=== PATIENT | female | born 1975 | race Two or more races ===

== ENCOUNTER 2022-06-03 15:21 | Emergency (ER) | payer OTHER, SELFPAY ==
[2022-06-03 16:42] VITALS: BP 0/0; PULSE 0; RESP 0; TEMP -17.7; TEMP 0
== END 2022-06-03 16:44 | disposition left against medical advice (07) ==
LOC: UTC 15:27
PROVIDERS: Emergency Provider Nurse Practitioner
DX: R22.1 Localized swelling, mass and lump, neck (principal); Z53.21 Procedure and treatment not carried out due to patient leaving prior to being seen by health care provider

== ENCOUNTER → 2022-09-11 16:15 | Outpatient (CLI) | payer OTHER, SELFPAY ==
[2022-09-12 09:31] LABS: Amphetamine/Metha Screen,Urine Negative ng/ml (<1000); Barbiturates Screen,Urine Negative ng/ml (<200)
[2022-09-12 09:32] LABS: Benzodiazepines Screen,Urine Negative ng/ml (<200)
[2022-09-12 09:33] LABS: Cannabinoid Screen,Urine Negative ng/ml (<50); Cocaine Screen,Urine Negative ng/ml (<300)
[2022-09-12 09:34] LABS: Methadone Screen,Urine Negative ng/ml (<300); Opiate Screen,Urine Negative ng/ml (<300)
[2022-09-12 09:35] LABS: Phencyclidine Screen,Urine Negative ng/ml (<25)
== END ==
PROVIDERS: PCP Physician Assistant; Visit Provider Physician Assistant
DX: F90.9 Attention-deficit hyperactivity disorder, unspecified type (principal)
CPT/HCPCS: 80305

== ENCOUNTER → 2022-10-15 09:16 | Outpatient (CLI) | payer OTHER, SELFPAY ==
--- NOTE | 2022-10-15 09:36 | XR_ITS ---
FINAL REPORT CLINICAL HISTORY: elbow pain FINDINGS: Left elbow Three views were obtained. There is no acute fracture or dislocation. No joint effusion is identified. The joint spaces appear normal. No soft tissue abnormality is identified. IMPRESSION: No acute process. Reviewed, Interpreted and Dictated by Niko Mccullough III, MD Transcribed by Clary Crowe Authenticated and [facility]
--- NOTE | 2022-10-15 09:36 | XR_ITS ---
FINAL REPORT CLINICAL HISTORY: pain FINDINGS: Left hand Three views were obtained. There is no acute fracture or dislocation. The joint spaces appear normal. No soft tissue abnormality is identified. IMPRESSION: No acute process. Reviewed, Interpreted and Dictated by Niko Mccullough III, MD Transcribed by Clary Crowe Authenticated and [facility]
--- NOTE | 2022-10-15 09:36 | XR_ITS ---
FINAL REPORT CLINICAL HISTORY: Hip pain FINDINGS: Left hip Three views were obtained. There is no acute fracture or dislocation. There are mild degenerative changes of both hips and in the lower lumbar spine. No soft tissue abnormality is identified. IMPRESSION: No acute process. Reviewed, Interpreted and Dictated by Niko Mccullough III, MD Transcribed by Clary Crowe Authenticated and [facility]
== END ==
PROVIDERS: PCP Physician Assistant; Visit Provider Orthopaedic Surgery
DX: M25.552 Pain in left hip (principal); M79.642 Pain in left hand; M25.522 Pain in left elbow
CPT/HCPCS: 73080; 73130; 73502

== ENCOUNTER → 2023-02-03 11:25 | Outpatient (CLI) | payer OTHER, SELFPAY ==
[2023-02-03 14:18] LABS: Basophils % 0.4 % (0.1-2.0); Eosinophils # 0.2 K/mm3 (0.0-0.4); Eosinophils % 2.7 % (0.1-12.0); Hematocrit 42.2 % (37.0-47.0); Hemoglobin 13.8 g/dL (12.2-16.2); Lymphocytes # 2.1 K/mm3 (0.7-4.5); Lymphocytes % 27.2 % (10-50); Mean Corpuscular HGB Conc 32.7 g/dL (31.8-35.4); Mean Corpuscular Hemoglobin 28.2 pg (27.0-31.2); Mean Corpuscular Volume 86.5 fl (81-99); Mean Platelet Volume 8.4 fl (7.4-10.4); Monocytes # 0.5 K/mm3 (0.1-1.0); Monocytes % 6.4 % (1.7-9.3); Neutrophils % 63.4 % (37.0-80.0); Platelet Count 293 K/mm3 (142-424); Red Blood Count 4.88 M/mm3 (4.20-5.40); Red Cell Distribution Width 14.7 % (11.5-17.5); White Blood Count 7.9 K/mm3 (4.8-10.8)
[2023-02-03 14:26] LABS: Chloride 97 mmol/L (98-107); Potassium 4.1 mmoL/L (3.5-5.1); Sodium 138 mmol/L (136-145)
[2023-02-03 14:28] LABS: Alanine Aminotransferase 21 U/L (12-78); Aspartate Amino Transferase 29 U/L (14-36); Blood Urea Nitrogen 13 mg/dl (7-17); Estimated Glomerular Filt Rate 107 ml/min (>60); GFR (African American) 130 ML/MIN (>60)
[2023-02-03 14:29] LABS: Albumin Level 4.3 g/dl (3.5-5.0); Albumin/Globulin Ratio 1.5 (1.1-1.8); Alkaline Phosphatase 61 U/L (38-126); Anion Gap 17.1 mEq/L (5-15); Bilirubin,Total 0.3 mg/dl (0.2-1.3); Calcium 9.1 mg/dl (8.4-10.2); Carbon Dioxide 28 mmol/L (22.0-30.0); Cholesterol 165 mg/dl (140-200); Globulin 2.8 g/dL (1.3-3.2); Glucose 100 mg/dl (74-100); Total Protein,Serum 7.1 g/dl (6.3-8.2); Triglycerides 136 mg/dl (30-150); VLDL Cholesterol 27 mg/dL (0-40)
[2023-02-03 14:30] LABS: Chol/HDL Ratio 4.2 (1-3.5); HDL Cholesterol 39 mg/dl (40-60)
[2023-02-03 14:43] LABS: Direct LDL Cholesterol 95.45 mg/dL (100-129)
[2023-02-03 14:46] LABS: 25-OH Vitamin D, Total 45.1 ng/mL (30-100)
[2023-02-03 14:48] LABS: Triiodothryronine (T3) Uptake 29 % (23.5-40.5)
[2023-02-03 14:49] LABS: Free Thyroxine Index 2.6 ug/dL (5.93-13.13); T4 (Thyroxine) 8.9 ug/dl (5.53-11.0)
== END ==
PROVIDERS: PCP Physician Assistant; Visit Provider Physician Assistant
DX: R53.83 Other fatigue (principal); F90.9 Attention-deficit hyperactivity disorder, unspecified type; N39.0 Urinary tract infection, site not specified; B96.29 Other Escherichia coli [E. coli] as the cause of diseases classified elsewhere
CPT/HCPCS: 80053; 80061; 82306; 84436; 84443; 84479; 85025; 87086; 87088; 87186

== ENCOUNTER → 2023-03-20 12:22 | Outpatient (CLI) | payer OTHER, SELFPAY ==
[2023-03-20 12:50] LABS: Alanine Aminotransferase 24 U/L (12-78); Albumin/Globulin Ratio 1.3 (1.1-1.8); Alkaline Phosphatase 81 U/L (38-126); Anion Gap 17.2 mEq/L (5-15); Aspartate Amino Transferase 27 U/L (14-36); Bilirubin,Total 0.3 mg/dl (0.2-1.3); Blood Urea Nitrogen 9 mg/dl (7-17); Carbon Dioxide 25 mmol/L (22.0-30.0); Chloride 104 mmol/L (98-107); Estimated Glomerular Filt Rate 132 ml/min (>60); GFR (African American) 160 ML/MIN (>60); Glucose 117 mg/dl (74-100); Potassium 4.2 mmoL/L (3.5-5.1); Sodium 142 mmol/L (136-145)
[2023-03-20 12:58] LABS: Basophils % 0.2 % (0.1-2.0); Eosinophils # 0.4 K/mm3 (0.0-0.4); Eosinophils % 2.6 % (0.1-12.0); Hematocrit 41.4 % (37.0-47.0); Hemoglobin 13.2 g/dL (12.2-16.2); Lymphocytes # 1.4 K/mm3 (0.7-4.5); Lymphocytes % 8.9 % (10-50); Mean Corpuscular HGB Conc 31.9 g/dL (31.8-35.4); Mean Corpuscular Hemoglobin 27.9 pg (27.0-31.2); Mean Corpuscular Volume 87.7 fl (81-99); Mean Platelet Volume 7.8 fl (7.4-10.4); Monocytes # 0.8 K/mm3 (0.1-1.0); Monocytes % 5.3 % (1.7-9.3); Neutrophils # 12.6 K/mm3 (1.8-7.8); Platelet Count 319 K/mm3 (142-424); Red Blood Count 4.72 M/mm3 (4.20-5.40); Red Cell Distribution Width 14.3 % (11.5-17.5); White Blood Count 15.2 K/mm3 (4.8-10.8)
[2023-03-20 13:05] LABS: MANUAL DIFFERENTIAL MANUAL DIFFERENTIAL (MANUAL DIFF)
[2023-03-20 15:37] LABS: Monoscreen (Rapid) Negative (Negative)
[2023-03-20 15:41] LABS: Eosinophils % 3 % (0-3); Lymphocytes % 17 % (10-50); Monocytes % 2 % (2-9); Neutrophils % 78 % (42-76); Platelet Estimate Normal; RBC Morphology Normal; Total Cells Counted 100
[2023-03-21 16:13] LABS: EBV Ab VCA, IgG >600.0 U/mL (0.0-17.9); EBV Ab VCA, IgM <36.0 U/mL (0.0-35.9); EBV Nuclear Antigen Ab, IgG >600.0 U/mL (0.0-17.9)
== END ==
PROVIDERS: PCP Physician Assistant; Visit Provider Physician Assistant
DX: R59.1 Generalized enlarged lymph nodes (principal)
CPT/HCPCS: 80053; 85007; 85025; 86318; 86664; 86665

== ENCOUNTER 2023-05-07 11:27 | Emergency (ER) | payer OTHER, SELFPAY ==
[2023-05-07 11:40] VITALS: BP 109/70; PULSE 65; RESP 15; TEMP 36.6; O2SAT 98; BMI 27.9
--- NOTE | 2023-05-07 11:49 | EXP.UTC ---
Discharge Plan Disposition Patient Disposition: Home, Self-Care Condition: Good Prescriptions Prescriptions: New sulfamethoxazole-trimethoprim [Bactrim DS] 800-160 mg Tablet 1 tab PO BID Qty: 14 0RF phenazopyridine [Pyridium] 200 mg tablet 200 mg PO Q8H 2 Days Qty: 6 0RF Referrals Follow up/Referrals: Princess Rubi PA [Primary Care Provider] - See instructions Activity Restrictions/Add. Instructions Additional Instructions/Restrictions: Drink plenty of fluids. Take tylenol or ibuprofen for pain or fever. Take the medications as directed. Follow up with your regular doctor. GO TO THE ER FOR ANY WORSENING SYMPTOMS The pyridium will make your urine turn orange, this is an expected side effect. It will stain your clothes if it comes into contact with them. We will culture the urine. That will tell what bacteria is causing your infection and which antibiotics will treat it best. Sometimes the first antibiotic we prescribe turns out to not work against different bacteria. So, make sure you follow up within 3 days if you are not getting better. Clinical Impressions Clinical Impression: UTI (urinary tract infection) Instructions Patient Instructions: Urine Culture, Phenazopyridine Discharge ED Provider: Jh Drake [facility] General Stated complaint: kidney/bladder pain, bilateral side pain, shakey Mode of Arrival: Ambulatory Source of Information: Patient Limitations: No Limitations Time Seen by Provider: 05/07/23 11:49 Description of Symptoms (Recalled from Triage Doc. by RN): Pt. states she thinks she has kidney stones. She stats her stomach is tender and is having sharp abdominal pain. She states she feels nauseous, has chills and is shaky. HEENT Symptoms (Recalled from RN notes): No Resp Symptoms (Recalled from RN notes): No Skin Symptoms (Recalled from RN notes): No MS Symptoms (Recalled from RN notes): No Functional Status (Recalled from RN notes): no History of Present Illness Provider Complaint: She states that for the past 2 days she has had low back pain, dysuria, and urinary frequency. Related Data Previous Rx's Medication Instructions Recorded phenazopyridine 200 mg tablet 200 mg PO Q8H 2 days #6 tabs 05/07/23 (Pyridium) sulfamethoxazole 800 1 tab PO BID #14 tabs 05/07/23 mg-trimethoprim 160 mg tablet (Bactrim DS) Allergies Allergy/AdvReac Type Severity Reaction Status Date / Time codeine [CODEINE] Allergy Unknown Verified 05/07/23 11:37 Worker's Comp Is this a Worker's Comp case?: No [facility] Disclaimer: The information contained in this section may have been updated after the patient was seen, as this information can be updated by other users. Medical History Anxiety Depression UTI (urinary tract infection) Surgical History H/O laparoscopy H/O wisdom tooth extraction Previous section Family History Other No significant family history Social History Smoking Status: Never smoker second hand exposure: No alcohol intake: never current occupational status: employed Travel in the last 8 weeks: None household members: spouse and children housing: house current occupational exposures/hazards: No ROS Obtained: Yes All systems reviewed & no additional complaints except as documented Constitutional Constitutional: Reports system reviewed and no additional complaints, except as documented, Denies chills and Denies fever(s) Eyes Eyes: Denies eye discharge ENT Ears, Nose, Mouth, and Throat: Denies dysphagia, Denies sore throat and Denies throat swelling Cardiovascular Cardiovascular: Denies chest pain and Denies dyspnea Respiratory Respiratory: Denies chest congestion, Denies cough and Denies dyspnea Gastroint
[2023-05-07 12:23] LABS: Microscopic, Urine URINE MICROSCOPIC (MICROSCOPIC)
[2023-05-07 12:31] LABS: Appearance,Urine SL CLOUDY (Clear); Blood, Urine Negative (Negative); Color,Urine STRAW (Yellow); Glucose,Urine (UA) TRACE (Negative); Ketones,Urine TRACE (Negative); Leukocyte Esterase,Urine 2+ (Negative); Nitrate,Urine POSITIVE (Negative); Protein,Urine 1+ (Negative)
[2023-05-07 12:32] VITALS: BP 109/70; PULSE 65; RESP 15; TEMP 36.6
[2023-05-07 13:01] LABS: Bacteria,Urine 3+ /lpf; Bilirubin,Urine 1+ (Negative); RBC,Urine Occasional #/hpf (0-3)
== END 2023-05-07 12:45 | disposition home or self-care (01) ==
PROVIDERS: Emergency Provider Nurse Practitioner Family; PCP Physician Assistant
DX: N39.0 Urinary tract infection, site not specified (principal); M54.59 Other low back pain; F41.9 Anxiety disorder, unspecified; F32.A Depression, unspecified
CPT/HCPCS: 81001; 87086; 99212; 99214; G0463

== ENCOUNTER → 2023-05-08 13:55 | Outpatient (CLI) | payer OTHER, SELFPAY | PROVIDERS: PCP Nurse Practitioner Family; Visit Provider Nurse Practitioner Family | DX: N39.0 Urinary tract infection, site not specified (principal) | CPT/HCPCS: 87086 ==

== ENCOUNTER 2023-12-16 09:08 | Outpatient (CLI) | payer OTHER, SELFPAY ==
--- NOTE | 2023-12-16 09:32 | XR_ITS ---
FINAL REPORT CLINICAL HISTORY: Lt Knee Pain COMPARISON: None FINDINGS: Three views of the left knee reveal no evidence of fracture or dislocation. The bony alignment is normal. The joint spaces are preserved. There is no evidence of joint effusion. No localized soft tissue abnormality is seen. IMPRESSION: No acute abnormality identified. Reviewed, Interpreted and Dictated by Niko Mccullough III, MD Transcribed by Evonne Bland Authenticated and [facility]
== END 2023-12-16 23:59 ==
LOC: RAD 09:09
PROVIDERS: PCP Physician Assistant; Visit Provider Orthopaedic Surgery
DX: M25.562 Pain in left knee (principal)
CPT/HCPCS: 73562

== ENCOUNTER 2024-03-10 10:19 | Outpatient (CLI) | payer OTHER, SELFPAY | END 2024-03-10 23:59 | disposition home or self-care (01) | LOC: LAB.DROPOF 03-11 10:19 | PROVIDERS: PCP Nurse Practitioner Family; Visit Provider Nurse Practitioner Family | DX: N39.0 Urinary tract infection, site not specified (principal); B96.1 Klebsiella pneumoniae [K. pneumoniae] as the cause of diseases classified elsewhere | CPT/HCPCS: 87086; 87088; 87186 ==

== ENCOUNTER 2024-03-30 08:47 | Outpatient (CLI) | payer OTHER, SELFPAY ==
--- NOTE | 2024-03-30 08:47 | CT_ITS ---
FINAL REPORT TECHNIQUE: Noncontrast CT exam of the abdomen and pelvis. This study was performed with techniques to keep radiation doses as low as reasonably achievable (ALARA). Individualized dose reduction techniques using automated exposure control or adjustment of mA and/or kV according to the patient''s size were employed. CLINICAL HISTORY: hx renal stones, UTI, abd pain COMPARISON: None FINDINGS: Abdomen: Lung bases are clear. Liver, spleen, pancreas and adrenal glands have a normal CT appearance in their limited unenhanced state. The gallbladder is unremarkable in appearance. The kidneys show numerous bilateral calyceal renal stones, measuring up to 4 mm in greatest diameter, although most are approximately 2 to 3 mm in diameter. No evidence of hydronephrosis is present. No obvious renal mass is present. No ureteral stones are present. Pelvis: No distal ureteral stones are seen. Bladder is unremarkable. No fluid collection or adenopathy is seen. The appendix is normal in appearance. The uterus and ovaries are also unremarkable. IMPRESSION: Numerous bilateral calyceal renal stones without evidence of obstruction. No acute intra-abdominal or intrapelvic process is identified. Reviewed, Interpreted and Dictated by La Nena Murillo MD Transcribed by Yeimy San Authenticated and [facility]
--- NOTE | 2024-03-30 09:42 | HMH.ITSTN ---
patient's study was ordered with and without contrast. Pt refused contrast, so order was modified per doctor to without contrast
== END 2024-03-30 23:59 | disposition home or self-care (01) ==
LOC: RAD 08:47
PROVIDERS: PCP Physician Assistant; Visit Provider Nurse Practitioner Family
DX: N20.0 Calculus of kidney (principal); N30.01 Acute cystitis with hematuria; R10.9 Unspecified abdominal pain
CPT/HCPCS: 74176

== ENCOUNTER 2024-06-24 11:12 | Outpatient (CLI) | payer OTHER, SELFPAY ==
--- NOTE | 2024-06-24 11:15 | XR_ITS ---
FINAL REPORT CLINICAL HISTORY: pain in the leg from the knee to ankle COMPARISON: None FINDINGS: LEFT TIBIA FIBULA: There is no acute fracture or dislocation. The joint spaces are intact. There is no soft tissue abnormality. IMPRESSION: No acute bony abnormality identified. Reviewed, Interpreted and Dictated by Jeferson Paez MD Transcribed by Yeimy San Authenticated and [facility]
== END 2024-06-24 23:59 | disposition home or self-care (01) ==
LOC: RAD 11:12
PROVIDERS: PCP Nurse Practitioner Family; Visit Provider Orthopaedic Surgery
DX: M89.8X6 Other specified disorders of bone, lower leg (principal)
CPT/HCPCS: 73590

== ENCOUNTER 2024-07-27 18:31 | Outpatient (CLI) | payer OTHER, SELFPAY ==
[2024-07-27 19:31] LABS: Albumin Level 4.4 g/dl (3.5-5.0); Chloride 103 mmol/L (98-107); Potassium 4.3 mmoL/L (3.5-5.1); Sodium 137 mmol/L (136-145)
[2024-07-27 19:33] LABS: Blood Urea Nitrogen 12 mg/dl (7-17); Estimated Glomerular Filt Rate 107 ml/min (>60); GFR (African American) 129 ML/MIN (>60)
[2024-07-27 19:34] LABS: Alanine Aminotransferase 20 U/L (12-78); Albumin/Globulin Ratio 1.4 (1.1-1.8); Alkaline Phosphatase 67 U/L (38-126); Anion Gap 14.3 mEq/L (5-15); Aspartate Amino Transferase 23 U/L (14-36); Bilirubin,Total 0.6 mg/dl (0.2-1.3); Calcium 9.9 mg/dl (8.4-10.2); Carbon Dioxide 24 mmol/L (22.0-30.0); Cholesterol 195 mg/dl (140-200); Globulin 3.1 g/dL (1.3-3.2); Glucose 91 mg/dl (74-100); Total Protein,Serum 7.5 g/dl (6.3-8.2); Triglycerides 125 mg/dl (30-150); VLDL Cholesterol 25 mg/dL (0-40)
[2024-07-27 19:35] LABS: Chol/HDL Ratio 4.5 (1-3.5); HDL Cholesterol 43 mg/dl (40-60)
[2024-07-27 19:37] LABS: Basophils # 0.1 K/mm3 (0-0.2); Basophils % 0.8 % (0.1-2.0); Eosinophils # 0.2 K/mm3 (0.0-0.4); Eosinophils % 2.6 % (0.1-12.0); Hematocrit 44.1 % (37.0-47.0); Hemoglobin 14.3 g/dL (12.2-16.2); Lymphocytes # 1.8 K/mm3 (0.7-4.5); Lymphocytes % 22.3 % (10-50); Mean Corpuscular HGB Conc 32.4 g/dL (31.8-35.4); Mean Corpuscular Hemoglobin 28.6 pg (27.0-31.2); Mean Platelet Volume 8.1 fl (7.4-10.4); Monocytes # 0.4 K/mm3 (0.1-1.0); Monocytes % 5.5 % (1.7-9.3); Neutrophils # 5.5 K/mm3 (1.8-7.8); Neutrophils % 68.8 % (37.0-80.0); Platelet Count 321 K/mm3 (142-424); Red Blood Count 5.01 M/mm3 (4.20-5.40); Red Cell Distribution Width 14.1 % (11.5-17.5)
[2024-07-27 19:45] LABS: Direct LDL Cholesterol 115.17 mg/dL (100-129)
[2024-07-27 19:50] LABS: Free T4 (Free Thyroxine) 1.26 ng/dl (0.78-2.19)
[2024-07-27 20:06] LABS: Thyroid Stimulating Hormone 1.44 uIU/mL (0.465-4.68)
== END 2024-07-27 23:59 | disposition home or self-care (01) ==
LOC: LAB.DROPOF 18:33
PROVIDERS: PCP Nurse Practitioner Family; Visit Provider Nurse Practitioner Family
DX: F90.9 Attention-deficit hyperactivity disorder, unspecified type (principal); R10.9 Unspecified abdominal pain; M92.522 Juvenile osteochondrosis of tibia tubercle, left leg
CPT/HCPCS: 80050; 80053; 80061; 84439; 84443; 84481; 85025

== ENCOUNTER 2024-11-08 16:50 | Outpatient (CLI) | payer OTHER, SELFPAY ==
[2024-11-08 17:39] LABS: Amphetamine/Metha Screen,Urine Negative ng/ml (<1000)
[2024-11-08 17:40] LABS: Barbiturates Screen,Urine Negative ng/ml (<200)
[2024-11-08 17:41] LABS: Benzodiazepines Screen,Urine Negative ng/ml (<200); Cannabinoid Screen,Urine Negative ng/ml (<50)
[2024-11-08 17:42] LABS: Cocaine Screen,Urine Negative ng/ml (<300)
[2024-11-08 17:43] LABS: Methadone Screen,Urine Negative ng/ml (<300); Opiate Screen,Urine Negative ng/ml (<300)
[2024-11-08 17:44] LABS: Phencyclidine Screen,Urine Negative ng/ml (<25)
== END 2024-11-08 23:59 | disposition home or self-care (01) ==
LOC: LAB 16:51
PROVIDERS: PCP Nurse Practitioner Family; Visit Provider Nurse Practitioner Acute Care
DX: F90.9 Attention-deficit hyperactivity disorder, unspecified type (principal)
CPT/HCPCS: 80307

== ENCOUNTER 2025-02-09 09:53 | Outpatient (CLI) | payer OTHER, SELFPAY ==
[2025-02-09 19:04] LABS: Basophils # 0.1 K/mm3 (0-0.2); Basophils % 0.9 % (0.1-2.0); Eosinophils # 0.3 Kmm3 (0.0-0.4); Eosinophils % 4.2 % (0.1-12.0); Hematocrit 44.4 % (37.0-47.0); Hemoglobin 13.8 g/dL (12.2-16.2); Immature Granulocytes # 0.01 10^3uL; Immature Granulocytes % 0.2 %; Lymphocytes # 1.9 K/mm3 (0.7-4.5); Mean Corpuscular HGB Conc 31.1 g/dL (31.8-35.4); Mean Corpuscular Hemoglobin 27.4 pg (27.0-31.2); Mean Corpuscular Volume 88.1 fl (81-99); Monocytes # 0.5 K/mm3 (0.1-1.0); Monocytes % 7.7 % (1.7-9.3); Neutrophils # 3.8 K/mm3 (1.8-7.8); Nucleated Red Blood Cells # 0 10^3/uL; Nucleated Red Blood Cells % 0 %; Platelet Count 354 K/mm3 (142-424); Red Blood Count 5.04 M/mm3 (4.20-5.40); Red Cell Distribution Width 14.6 % (11.5-17.5); Red Cell Distribution Width-SD 46.8 fL; White Blood Count 6.5 K/mm3 (4.8-10.8)
[2025-02-09 19:31] LABS: Alanine Aminotransferase 21 U/L (12-78); Albumin Level 4.4 g/dl (3.5-5.0); Albumin/Globulin Ratio 1.6 (1.1-1.8); Alkaline Phosphatase 63 U/L (38-126); Anion Gap 8.3 mEq/L (5-15); Aspartate Amino Transferase 26 U/L (14-36); Bilirubin,Total 0.4 mg/dl (0.2-1.3); Blood Urea Nitrogen 17 mg/dl (7-17); Calcium 9.9 mg/dl (8.4-10.2); Carbon Dioxide 29 mmol/L (22.0-30.0); Chloride 106 mmol/L (98-107); Estimated Glomerular Filt Rate 106 ml/min (>60); GFR (African American) 129 ML/MIN (>60); Globulin 2.7 g/dL (1.3-3.2); Glucose 86 mg/dl (74-100); Potassium 4.3 mmoL/L (3.5-5.1); Sodium 139 mmol/L (136-145); Total Protein,Serum 7.1 g/dl (6.3-8.2)
--- OUTSIDE RECORDS SUMMARY | 2025-02-10 08:20 | XMS_ITS | Continuity of Care Document ---
Author Name [facility] Organization [facility] Care Team Providers Care Stock Worker Name Role Phone [facility] Unavailable Unavailable Encounters [...] ADM Date DC Date Status Disposition Source [facility] Outpatient Encounter [id number] 02/07 [facility]
[2025-02-11 08:13] LABS: Estradiol 45.3 pg/mL (.); FSH 11.2 mIU/mL (.); LH 7.3 mIU/mL (.); Progesterone 0.1 ng/mL (.)
[2025-02-12 14:11] LABS: Estrogen 187 pg/mL (.)
== END 2025-02-09 23:59 | disposition home or self-care (01) ==
LOC: LAB.DROPOF 02-10 08:18
PROVIDERS: PCP Nurse Practitioner Family; Visit Provider Nurse Practitioner Family
DX: N95.9 Unspecified menopausal and perimenopausal disorder (principal)
CPT/HCPCS: 80053; 82670; 82672; 83001; 83002; 84144; 85025

== ENCOUNTER 2025-03-28 10:27 | Outpatient (CLI) | payer OTHER, SELFPAY ==
--- OUTSIDE RECORDS SUMMARY | 2025-02-07 12:14 | XMS_ITS | Continuity of Care Document ---
Author Name [facility] Organization [facility] Care Team Providers Care Central Supply Tech Name Role Phone [facility] Unavailable Unavailable Encounters [...] ADM Date DC Date Status Disposition Source [facility] Outpatient Encounter [id number] 02/07 [facility]
[2025-03-28 10:55] LABS: Basophils # 0.1 K/mm3 (0-0.2); Basophils % 0.7 % (0.1-2.0); Eosinophils # 0.1 Kmm3 (0.0-0.4); Eosinophils % 0.8 % (0.1-12.0); Hematocrit 39.9 % (37.0-47.0); Hemoglobin 12.9 g/dL (12.2-16.2); Immature Granulocytes # 0.05 10^3uL; Immature Granulocytes % 0.4 %; Lymphocytes # 5.9 K/mm3 (0.7-4.5); Lymphocytes % 50.4 % (10-50); Mean Corpuscular HGB Conc 32.3 g/dL (31.8-35.4); Mean Corpuscular Hemoglobin 26.7 pg (27.0-31.2); Mean Corpuscular Volume 82.6 fl (81-99); Mean Platelet Volume 10.1 fl (7.4-10.4); Monocytes # 0.3 K/mm3 (0.1-1.0); Monocytes % 2.4 % (1.7-9.3); Neutrophils # 5.3 K/mm3 (1.8-7.8); Neutrophils % 45.3 % (37.0-80.0); Nucleated Red Blood Cells # 0 10^3/uL; Nucleated Red Blood Cells % 0 %; Platelet Count 161 K/mm3 (142-424); Red Blood Count 4.83 M/mm3 (4.20-5.40); Red Cell Distribution Width 15.1 % (11.5-17.5); Red Cell Distribution Width-SD 45.4 fL; White Blood Count 11.7 K/mm3 (4.8-10.8)
[2025-03-28 11:00] LABS: Monoscreen (Rapid) Negative (Negative)
[2025-03-28 11:01] LABS: MANUAL DIFFERENTIAL MANUAL DIFFERENTIAL (MANUAL DIFF)
--- OUTSIDE RECORDS SUMMARY | 2025-03-28 11:04 | XMS_ITS | Encounter Summary ---
Author Organization [email or web address] Address [address] [place] [id number] Care Team Providers Care Residential Gas Heat Technician Name Role Phone Unavailable Primary Care Provider Unavailabl e Encounter Details Date Type Department Care Team (Late st Contact Info) Description 11/10/2020 Transcribed Document [facility] Family Medicine [facility] [place] [address] ProviderFernanda MD [facility] [place] [address] Social History Tobacco Use Types Packs/Day Years Used Date Smoking Tobacco: Never Assessed Comments Unknown Sex and Gender Information Value Date Recorded Sex Assigned at Not on file Legal Sex Female 6:10 PM CDT Gender Identity Not on file Sexual Orientation Not on file documented as of this encounter Miscellaneous Notes * Cerner Conversion Note - Fernanda ProviderMD - 11/10/2020 12:29 PM EL TEACHER ED Triage Entered On: 11/10/2020 12:44 EST Performed On: 11/10/2020 12:42 EST by Lexi Snow Flex Team chopping machine operator Triage Across the Room Chief Complaint : pt having urinary problems, for last few days, urine discolored, lower abd pain with cramping, Triage Date/Time : 11/10/2020 12:42 EST Lexi Snow Flex Team Rn - 11/10/2020 12:42 EST DCP GENERIC CODE Tracking Acuity : 3 - Urgent Tracking Group : [facility] [place] Lexi Snow Flex Team Rn - 11/10/2020 12:42 EST Mode of Arrival : Ambulatory Transported to ED by : Private vehicle To Room Via : Ambulate Accompanied By : Unaccompanied ED Vital Signs : Document Height & Weight : Document ED Allergies : Document ED Reason for Visit : Document Tetanus Immunization : Less than 5 years Grades 7 And 8 Teacher Needed : No Lexi Snow Flex Team Rn - 11/10/2020 12:42 EST Infectious Disease History Has the patient ever been tested for COVID-19? : No, Patient stated Does patient have symptoms of COVID-19? : No COVID19 Screening : No Experiencing Infectious Disease Symptoms : No symptoms Physical contact outside [place] in the last 30 days : No Infectious Disease History : Chicken pox/Shingles Tuberculosis Symptoms : None Lexi Snow Flex Team Rn - 11/10/2020 12:42 EST Vital Signs ED Temperature Source : Oral Temperature Mode : Fahrenheit Temperature, Fahrenheit : 98.0 Deg F ED Pain : Yes Clinical Temperature, C : 36.7 Deg C Oxygen Therapy Mode : Room air Peripheral Pulse Rate : 88 bpm Respiratory Rate : 16 Breaths/Min Systolic Blood Pressure : 146 mmHg (HI) Diastolic Blood Pressure : 87 mmHg Oxygen Saturation : 100 % Lexi Snow Flex Team Rn - 11/10/2020 12:42 EST Allergy (As Of: 11/10/2020 12:44:45 EST) Allergies (Active) codeine Estimated Onset Date: Unspecified ; Created By: Contributor_system HIST_GREY; Reaction Status: Active ; Category: Drug ; Substance: codeine ; Type: Allergy ; Updated By: Contributor_system HIST_GREY; Reviewed Date: 11/10/2020 12:43 EST Diagnosis Control ED (As Of: 11/10/2020 12:44:45 EST) Problems(Active) 28 weeks gestation of (SNOMED CT :402239468 ) Name of Problem: 28 weeks gestation of ; Recorder: PAT SUTTON MD; Confirmation: Confirmed ; Classification: Medical ; Code: [id number] ; Contributor System: Canvace ; Last Updated: 05/22/2018 17:04 EDT ; Life Cycle Date: 05/22/2018 ; Life Cycle Status: Active ; Responsible Provider: PAT SUTTON MD; Vocabulary: SNOMED CT Cough (SNOMED CT :83849510 ) Name of Problem: Cough ; Recorder: PAT SUTTON MD; Confirmation: Confirmed ; Classification: Medical ; Code: [id number] ; Contributor System: Canvace ; Last Updated: 05/22/2018 17:05 EDT ; Life Cycle Date: 05/22/2018 ; Life Cycle Status: Active ; Responsible Provider: PAT SUTTON MD; Vocabulary: SNOMED CT Vaginal discharge in in third trimester (SNOMED CT :642995159 ) Name of Problem: Vaginal discharge in in third trimester ; Recorder: PAT SUTTON MD; Confirmation: Confirmed ; Classification: Medical ; Code: [id number] ; Contributor System: Canvace ; Last Updated: 05/22/2018 17:05 EDT ; Life Cycle Date: 05/22/2018 ; Life Cycle Status: Active ; Responsible Provider: PAT SUTTON MD; Vocabulary: SNOMED CT Diagnoses(Active) Abdominal pain Date: 11/10/2020 ; Diagnosis Type: Reason For Visit ; Confirmation: Complaint of ; Clinical Dx: Abdominal pain ; Classification: Medical ; Clinical Service: Non-Specified ; Code: PNED ; Probability: 0 ; Diagnosis Code: [id number] ED Height and Weight Height Source : Stated Height Entry Format : [place] Height, Feet : 5 ft(Converted to: 152 cm, 60 Inch) Height, Inches : 5 Inch(Converted to: 0 ft 5 Inch, 12.70 cm) Clinical Height : 165.1 cm Weight Source, ED : Critical estimated dosing weight Weight Entry Format : [place] Weight, Pounds : 195 lb Clinical Dosing Weight : 88.64 kg Body Surface Area (BSA) : 1.96 m2 Body Mass Index : 32.5 kg/m2 (HI) [place] Body Weight (IBW) : 56.59 kg Lexi Snow Flex Team Rn - 11/10/2020 12:42 EST Pain Assessment Pain Assessment : Initial assessment Pain Scale Used : 0-10 Scale Location : Abdominal Lexi Snow Flex Team Rn - 11/10/2020 12:42 EST Pain Scale Intensity : 7 Lexi Snow Flex Team Rn - 11/10/2020 12:42 EST Image 4 - Images currently included in the form version of this document have not been included in the text rendition version of the form. documented in this encounter Plan of Treatment Not on file documented as of this encounter Visit Diagnoses Not on filedocumented in this encounter
--- OUTSIDE RECORDS SUMMARY | 2025-03-28 11:04 | XMS_ITS | Referral Summary ---
Author Organization [employer] Address [address] [place] [address] Care Team Providers Care Inclusion Specialist Name Role Phone Unavailable Primary Care Provider Unavailabl e Social History Tobacco Use Types Packs/Day Years Used Date Smoking Tobacco: Never Assessed Comments Unknown Sex and Gender Information Value Date Recorded Sex Assigned at Not on file Legal Sex Female 6:10 PM CDT Gender Identity Not on file Sexual Orientation Not on file Plan of Treatment Not on file
--- OUTSIDE RECORDS SUMMARY | 2025-03-28 11:04 | XMS_ITS | Encounter Summary ---
Author Organization [employer] Address [address] [place] [id number] Care Team Providers Care Client Support Consultant Name Role Phone Unavailable Primary Care Provider Unavailabl e Encounter Details Date Type Department Care Team (Late st Contact Info) Description 11/10/2020 Transcribed Document [facility] [place] [facility] [address] [place] [address] ProviderFernanda MD [address] [place] [address] Social History Tobacco Use Types Packs/Day Years Used Date Smoking Tobacco: Never Assessed Comments Unknown Sex and Gender Information Value Date Recorded Sex Assigned at Not on file Legal Sex Female 6:10 PM CDT Gender Identity Not on file Sexual Orientation Not on file documented as of this encounter Miscellaneous Notes * Cerner Conversion Note - Fernanda Macedo MD - 11/10/2020 2:58 PM [employer] [place] [id number] ALEXANDREA PAN SENTHIL :1975 Visit Time:11/10/2020 Your Visit Summary Your Care Team Primary Provider: SUSAN TURCIOS APRN-[facility] Secondary Provider: Your Diagnosis Abdominal pain Bilateral kidney stones Dysuria Hematuria Urinary tract infection Medical Information You may obtain a copy of your Emergency Department visit from Medical Records by calling the hospital phone number listed above and asking to be directed to the Medical Records Department. If you had special tests, such as EKG???s or X-rays, the interpretation of your tests given to you by the Emergency Department Physician is a preliminary report. Some fractures and illnesses fail to show up on preliminary tests. These will be reviewed again and we will call you if there are any new suggestions. If your symptoms continue notify your physician. After you leave, you should follow the instructions provided. What to do next Follow-Up Appointments Follow Up with DEVAN RUSS When Within 2 to 3 days Comments Rest, fluids, and follow up with urology. Return to ER for fever, chills, inability to urinate, or other new/worse symptoms. Where: [address] [place] [address] [place] [address]- [facility] (1) Allergies codeine Immunizations This Visit No Immunizations Found Medications What How Much When Instructions Next Dose cefUROXIME (Ceftin 500 mg oral tablet) 1 Tablet(s) Oral Two Times A Day Duration: 7 Day(s) Pickup at [place] [address] phenazopyridine (Pyridium 200 mg oral tablet) 1 Tablet(s) Oral Two Times A Day Duration: 2 Day(s) Pickup at [place] [address] acetaminophen-hydrocodone (acetaminophen-HYDROcodone 325 mg-5 mg oral tablet) 2 Tablet(s) Oral Every 4 Hours as needed for Pain (Severe 7-10) acetaminophen-hydrocodone (acetaminophen-HYDROcodone 325 mg-5 mg oral tablet) 1 Tablet(s) Oral Every 4 Hours as needed for Pain (Moderate 4-6) ibuprofen (ibuprofen 600 mg oral tablet) 1 Tablet(s) Oral Every 6 Hours metFORMIN (metFORMIN 500 mg oral tablet) 1 Tablet(s) Oral Two Times A Day multivitamin, ( Rx Low Iron) Oral Every Day Pharmacy Information [facility] [address]: [phone] [place] [id number] [phone] The home medications listed are only as accurate as the information you provided. Please continue taking all of your medications prescribed by your Primary Care Provider unless specifically told to change or discontinue the medication. Please direct any questions regarding your home medications to your Primary Care Provider. Take your medications faithfully. Do NOT skip medication. Do NOT stop taking medications without the direction of a physician. Carry a list of your medications with you at all times, and take this medication list with you to your first follow up visit. Report any side effects. Avoid herbal remedies unless discussed with your physician. As part of your treatment plan, your physician may have prescribed a limited course of a controlled substance. This medication may be given to help people with moderate or severe pain or for other medical conditions, but there are risks involved with treatment. Common side effects may include nausea, constipation, drowsiness, sweating, itching, dry mouth, and rash. More serious side effects may include cognitive and motor impairment, like problems with thinking, concentrating, alertness, and movement (e.g. slowed reflexes), and driving and operating heavy machinery can be dangerous. It is important for you to talk to your physician if you have these side effects or questions. These controlled substances can produce physical dependence and be habit-forming if taken for an extended period of time, which means that the body has gotten used to them and may experience withdrawal symptoms if they are abruptly stopped. Withdrawal symptoms can include runny nose, sweating, goose bumps, diarrhea, abdominal cramping, rapid heartbeat, difficulty sleeping, and nervousness. Please dispose of unused and medications per pharmacy guidance. Test Results Laboratory or Other Results This Visit (last charted value for your 11/10/2020 visit) Urinalysis 11/10/2020 12:45 PM Ur RBC: TNTC /HPF Urine Nitrite: Negative Urine Leukocyte Esterase: Small Urine Appearance: Cloudy Urine Glucose Dipstick: Negative Urine Blood Dipstick: Large Urine Urobilinogen Dipstick: 0.2 EU/dL -- Normal range between ( 0.2 and 1.0 ) Urine Protein Dipstick: Trace Ur Bacteria: 1+ Ur Squamous Epithelial Cells: 5-10 /HPF Urine Color: DK YELLOW Ur WBC: 10-20 /HPF Urine Ketones Dipstick: Negative Urine pH Dipstick: 6.0 -- Normal range between ( 6.0 and 8.0 ) Urine Bilirubin Dipstick: Negative Urine Specific Fountain: 1.022 -- Normal range between ( 1.005 and 1.030 ) Urine Type.: U CleanCatch Urine Culture if Indicated: Culture Ordered Endocrinology 11/10/2020 12:45 PM HCG Urine Qualitative: Negative Computed Tomography 11/10/2020 2:[address] Abdomen Pelvis WO: CT Abdomen Pelvis WO [employer] Hematuria, Adult Hematuria is blood in the urine. Blood may be visible in the urine, or it may be identified with a test. This condition can be caused by infections of the bladder, urethra, kidney, or prostate. Other possible causes include: ??? Kidney stones. ??? Cancer of the urinary tract. ??? Too much calcium in the urine. ??? Conditions that are passed from parent to child (inherited conditions). ??? Exercise that requires a lot of energy. Infections can usually be treated with medicine, and a kidney stone usually will pass through your urine. If neither of these is the cause of your hematuria, more tests may be needed to identify the cause of your symptoms. It is very important to tell your health care provider about any blood in your urine, even if it is painless or the blood stops without treatment. Blood in the urine, when it happens and then stops and then happens again, can be a symptom of a very serious condition, including cancer. There is no pain in the initial stages of many urinary cancers. Follow these instructions at home: Medicines ??? Take vahv-qpz-ryoljrw and prescription medicines only as told by your health care provider. ??? If you were prescribed an antibiotic medicine, take it as told by your health care provider. Do not stop taking the antibiotic even if you start to feel better. Eating and drinking ??? Drink enough fluid to keep your urine clear or pale yellow. It is recommended that you drink 3???4 quarts (2.8???3.8 L) a day. If you have been diagnosed with an infection, it is recommended that you drink cranberry juice in addition to large amounts of water. ??? Avoid caffeine, tea, and carbonated beverages. These tend to irritate the bladder. ??? Avoid alcohol because it may irritate the prostate (men). General instructions ??? If you have been diagnosed with a kidney stone, follow your health care provider's instructions about straining your urine to catch the stone. ??? Empty your bladder often. Avoid holding urine for long periods of time. ??? If you are female: ? After a bowel movement, wipe from front to back and use each piece of toilet paper only once. ? Empty your bladder before and after sex. ??? Pay attention to any changes in your symptoms. Tell your health care provider about any changes or any new symptoms. ??? It is your responsibility to get your test results. Ask your health care provider, or the department performing the test, when your results will be ready. ??? Keep all follow-up visits as told by your health care provider. This is important. Contact a health care provider if: ??? You develop back pain. ??? You have a fever. ??? You have nausea or vomiting. ??? Your symptoms do not improve after 3 days. ??? Your symptoms get worse. Get help right away if: ??? You develop severe vomiting and are unable take medicine without vomiting. ??? You develop severe pain in your back or abdomen even though you are taking medicine. ??? You pass a large amount of blood in your urine. ??? You pass blood clots in your urine. ??? You feel very weak or like you might faint. ??? You faint. Summary ??? Hematuria is blood in the urine. It has many possible causes. ??? It is very important that you tell your health care provider about any blood in your urine, even if it is painless or the blood stops without treatment. ??? Take ulij-wkp-hnexkoz and prescription medicines only as told by your health care provider. ??? Drink enough fluid to keep your urine clear or pale yellow. This information is not intended to replace advice given to you by your health care provider. Make sure you discuss any questions you have with your health care provider. Document Released: 09/22/2006 Document Revised: 02/16/2020 Document Reviewed: 10/25/2017 [email or web address] Patient Education ?? 2020 [employer]. Kidney Stones Kidney stones are solid, rock-like deposits that form inside of the kidneys. The kidneys are a pair of organs that make urine. A kidney stone may form in a kidney and move into other parts of the urinary tract, including the tubes that connect the kidneys to the bladder (ureters), the bladder, and the tube that carries urine out of the body (urethra). As the stone moves through these areas, it can cause intense pain and block the flow of urine. Kidney stones are created when high levels of certain minerals are found in the urine. The stones are usually passed out of the body through urination, but in some cases, medical treatment may be needed to remove them. What are the causes? Kidney stones may be caused by: ??? A condition in which certain glands produce too much parathyroid hormone (primary hyperparathyroidism), which causes too much calcium buildup in the blood. ??? A buildup of uric acid crystals in the bladder (hyperuricosuria). Uric acid is a chemical that the body produces when you eat certain foods. It usually exits the body in the urine. ??? Narrowing (stricture) of one or both of the ureters. ??? A kidney blockage that is present at (congenital obstruction). ??? Past surgery on the kidney or the ureters, such as gastric bypass surgery. What increases the risk? The following factors may make you more likely to develop this condition: ??? Having had a kidney stone in the past. ??? Having a family history of kidney stones. ??? Not drinking enough water. ??? Eating a diet that is high in protein, salt (sodium), or sugar. ??? Being overweight or obese. What are the signs or symptoms? Symptoms of a kidney stone may include: ??? Pain in the side of the abdomen, right below the ribs (flank pain). Pain usually spreads (radiates) to the groin. ??? Needing to urinate frequently or urgently. ??? Painful urination. ??? Blood in the urine (hematuria). ??? Nausea. ??? Vomiting. ??? Fever and chills. How is this diagnosed? This condition may be diagnosed based on: ??? Your symptoms and medical history. ??? A physical exam. ??? Blood tests. ??? Urine tests. These may be done before and after the stone passes out of your body through urination. ??? Imaging tests, such as a CT scan, abdominal X-ray, or ultrasound. ??? A procedure to examine the inside of the bladder (cystoscopy). How is this treated? Treatment for kidney stones depends on the size, location, and makeup of the stones. Kidney stones will often pass out of the body through urination. You may need to: ??? Increase your fluid intake to help pass the stone. In some cases, you may be given fluids through an IV and may need to be monitored at the hospital. ??? Take medicine for pain. ??? Make changes in your diet to help prevent kidney stones from coming back. Sometimes, medical procedures are needed to remove a kidney stone. This may involve: ??? A procedure to break up kidney stones using: ? A focused beam of light (laser therapy). ? Shock waves (extracorporeal shock wave lithotripsy). ??? Surgery to remove kidney stones. This may be needed if you have severe pain or have stones that block your urinary tract. Follow these instructions at home: Medicines ??? Take ukkh-gpd-swlregv and prescription medicines only as told by your health care provider. ??? Ask your health care provider if the medicine prescribed to you requires you to avoid driving or using heavy machinery. Eating and drinking ??? Drink enough fluid to keep your urine pale yellow. You may be instructed to drink at least 8???10 glasses of water each day. This will help you pass the kidney stone. ??? If directed, change your diet. This may include: ? Limiting how much sodium you eat. ? Eating more fruits and vegetables. ? Limiting how much animal protein???such as red meat, poultry, fish, and eggs???you eat. ??? Follow instructions from your health care provider about eating or drinking restrictions. General instructions ??? Collect urine samples as told by your health care provider. You may need to collect a urine sample: ? 24 hours after you pass the stone. ? 8???12 weeks after passing the kidney stone, and every 6???12 months after that. ??? Strain your urine every time you urinate, for as long as directed. Use the strainer that your health care provider recommends. ??? Do not throw out the kidney stone after passing it. Keep the stone so it can be tested by your health care provider. Testing the makeup of your kidney stone may help prevent you from getting kidney stones in the future. ??? Keep all follow-up visits as told by your health care provider. This is important. You may need follow-up X-rays or ultrasounds to make sure that your stone has passed. How is this prevented? To prevent another kidney stone: ??? Drink enough fluid to keep your urine pale yellow. This is the best way to prevent kidney stones. ??? Eat a healthy diet and follow recommendations from your health care provider about foods to avoid. You may be instructed to eat a low-protein diet. Recommendations vary depending on the type of kidney stone that you have. ??? Maintain a healthy weight. Where to find more information ??? National Kidney Foundation (NKF): www.kidney.org ??? U[facility] Foundation (UCF): www.urologyhealth.org Contact a health care provider if: ??? You have pain that gets worse or does not get better with medicine. Get help right away if: ??? You have a fever or chills. ??? You develop severe pain. ??? You develop new abdominal pain. ??? You faint. ??? You are unable to urinate. Summary ??? Kidney stones are solid, rock-like deposits that form inside of the kidneys. ??? Kidney stones can cause nausea, vomiting, blood in the urine, abdominal pain, and the urge to urinate frequently. ??? Treatment for kidney stones depends on the size, location, and makeup of the stones. Kidney stones will often pass out of the body through urination. ??? Kidney stones can be prevented by drinking enough fluids, eating a healthy diet, and maintaining a healthy weight. This information is not intended to replace advice given to you by your health care provider. Make sure you discuss any questions you have with your health care provider. Document Released: 09/22/2006 Document Revised: 02/08/2020 Document Reviewed: 02/08/2020 [email or web address] Patient Education ?? 2020 [employer]. Urinary Tract Infection, Adult A urinary tract infection (UTI) is an infection of any part of the urinary tract. The urinary tract includes: ??? The kidneys. ??? The ureters. ??? The bladder. ??? The urethra. These organs make, store, and get rid of pee (urine) in the body. What are the causes? This is caused by germs (bacteria) in your genital area. These germs grow and cause swelling (inflammation) of your urinary tract. What increases the risk? You are more likely to develop this condition if: ??? You have a small, thin tube (catheter) to drain pee. ??? You cannot control when you pee or poop (incontinence). ??? You are female, and: ? You use these methods to prevent : ? A medicine that kills sperm (spermicide). ? A device that blocks sperm (diaphragm). ? You have low levels of a female hormone (estrogen). ? You are . ??? You have genes that add to your risk. ??? You are sexually active. ??? You take antibiotic medicines. ??? You have trouble peeing because of: ? A prostate that is bigger than normal, if you are male. ? A blockage in the part of your body that drains pee from the bladder (urethra). ? A kidney stone. ? A nerve condition that affects your bladder (neurogenic bladder). ? Not getting enough to drink. ? Not peeing often enough. ??? You have other conditions, such as: ? Diabetes. ? A weak disease-fighting system (immune system). ? Sickle cell disease. ? Gout. ? Injury of the spine. What are the signs or symptoms? Symptoms of this condition include: ??? Needing to pee right away (urgently). ??? Peeing often. ??? Peeing small amounts often. ??? Pain or burning when peeing. ??? Blood in the pee. ??? Pee that smells bad or not like normal. ??? Trouble peeing. ??? Pee that is cloudy. ??? Fluid coming from the vagina, if you are female. ??? Pain in the belly or lower back. Other symptoms include: ??? Throwing up (vomiting). ??? No urge to eat. ??? Feeling mixed up (confused). ??? Being tired and grouchy (irritable). ??? A fever. ??? Watery poop (diarrhea). How is this treated? This condition may be treated with: ??? Antibiotic medicine. ??? Other medicines. ??? Drinking enough water. Follow these instructions at home: Medicines ??? Take rwku-aoc-hqavvvd and prescription medicines only as told by your doctor. ??? If you were prescribed an antibiotic medicine, take it as told by your doctor. Do not stop taking it even if you start to feel better. General instructions ??? Make sure you: ? Pee until your bladder is empty. ? Do not hold pee for a long time. ? Empty your bladder after sex. ? Wipe from front to back after pooping if you are a female. Use each tissue one time when you wipe. ??? Drink enough fluid to keep your pee pale yellow. ??? Keep all follow-up visits as told by your doctor. This is important. Contact a doctor if: ??? You do not get better after 1???2 days. ??? Your symptoms go away and then come back. Get help right away if: ??? You have very bad back pain. ??? You have very bad pain in your lower belly. ??? You have a fever. ??? You are sick to your stomach (nauseous). ??? You are throwing up. Summary ??? A urinary tract infection (UTI) is an infection of any part of the urinary tract. ??? This condition is caused by germs in your genital area. ??? There are many risk factors for a UTI. These include having a small, thin tube to drain pee and not being able to control when you pee or poop. ??? Treatment includes antibiotic medicines for germs. ??? Drink enough fluid to keep your pee pale yellow. This information is not intended to replace advice given to you by your health care provider. Make sure you discuss any questions you have with your health care provider. Document Released: 03/10/2009 Document Revised: 09/09/2019 Document Reviewed: 04/01/2019 [email or web address] Patient Education ?? 2020 [employer]. Emergency Awareness and Preventative Care STROKE is an EMERGENCY Every Minute Counts Act FAST and Check for these signs: FACE Does the face look uneven? ARM Does one arm drift down? SPEECH Does their speech sound strange? TIME Call at any sign of stroke Stroke Risk Factors Atrial Fibrillation (irregular heartbeat) Diabetes Family history of stroke Heart Disease Heavy alcohol use High Blood Pressure High Cholesterol Physical inactivity and obesity Smoking Cigarette Smoking The facts are clear, cigarette smoking will shorten your life. Smoking can cause many illnesses along the way. As a healthcare provider, we recommend that you stop smoking. Assistance with quitting is available by contacting 2-113-IXLW-NOW. This is a free resource providing counseling, support, and referral. Or you may contact your personal physician. National Suicide Prevention Lifeline: The National Suicide Prevention Lifeline is a national network of local crisis centers that provides free and confidential emotional support to people in suicidal crisis or emotional distress 24 hours a day, 7 days a week. Don't Wait! Stop a Heart Attack Before it Starts What is a heart attack? A heart attack is damage or to a part of the heart from severely decreased or lack of blood flow to the heart. Over time, arteries can become narrow from the buildup of fat and cholesterol, which is called plaque. The plaque can rupture causing a blood clot to form. When the blood clot forms, the artery can become severely narrowed or completely blocked, causing a heart attack. Heart attack is the leading cause of in the [place]. 85% of muscle damage occurs within the first 2 hours. Delay in the recognition of heart attack symptoms increases the chances of . Know the early symptoms of a heart attack: Nausea Feeling of fullness in chest Jaw Pain Pain that travels down one or both arms Fatigue/being tired Anxiety Back Pain Chest pressure, squeezing, or discomfort Shortness of breath Sweating, or a cold sweat Feeling of impending doom There are unusual signs of a heart attack, too! Women, the elderly, and diabetics may present with atypical symptoms: Fainting/dizziness Weakness Confusion Risk Factors for a Heart Attack Some heart disease risk factors, such as age and family history, cannot be changed. Others, like smoking and lack of exercise, can be changed. Smoking High Cholesterol High Blood Pressure Family History Obesity Age Gender (Males are at higher risk) Lack of Exercise Diabetes Diet Stress Excessive Alcohol Intake If you or someone you know is experiencing the signs and symptoms of a heart attack, DON???T DELAY. Call immediately and seek help. If someone collapses, perform CPR! Do not attempt to drive if you are having symptoms of heart attack. Hands-Only CPR Why Hands-Only CPR? Hands-Only CPR has been shown to be as effective as conventional CPR for cardiac arrests that occur outside of a hospital. Survival depends on immediately receiving CPR from someone nearby. How do you perform Hands-Only CPR? There are two easy steps: Call if you see a teen or adult collapse Push hard and fast in the center of the chest at a beat of 100 beats per minute. Save a life! 4 WAYS TO GET AHEAD OF SEPSIS SEPSIS is a MEDICAL EMERGENCY. Time matters! Infections put you and your family at risk for a life-threatening condition called sepsis. Sepsis is the body's extreme response to an infection. It is life-threatening, and without timely treatment, sepsis can rapidly lead to tissue damage, organ failure, and . Sepsis happens when an infection you already have-in your skin, lungs, urinary tract or somewhere else-triggers a chain reaction throughout your body. 1 PREVENT INFECTIONS Take good care of chronic conditions. Talk to your doctor about getting the recommended vaccines. 2 PRACTICE GOOD HYGIENE Wash your hands frequently. Keep cuts or open sores clean and covered until they are healed. 3 KNOW THE SYMPTOMS Confusion or disorientation Shortness of breath High heart rate Fever, shivering, or feeling very cold Extreme pain or discomfort Clammy or sweaty skin 4 ACT FAST Get medical care IMMEDIATELY if you suspect sepsis or if you have an infection that is not getting better or is getting worse. To learn more about sepsis and how to prevent infections, visit www.cdc.gov/sepsis. The examination and treatment you have received in the Emergency Department has been done to provide an appropriate evaluation and stabilizing treatment on an emergency basis only. Given the limited resources, it is not meant to be a substitute for complete medical care. The follow-up doctor you named will receive a copy of your records and all test reports. IT IS IMPORTANT THAT YOU SCHEDULE A FOLLOW-UP APPOINTMENT AND ARE RE-EVALUATED. You should report any new complaints, symptoms, or remaining problems at that time. IT IS IMPOSSIBLE FOR THE EMERGENCY DEPARTMENT TO RECOGNIZE AND TREAT ALL ELEMENTS OF INJURY OR ILLNESS IN A SINGLE VISIT. If you have been referred to a specialist physician, it means that we believe you may have a condition that requires the expertise of a specialist. These physicians work in partnership with the hospital and have agreed to see referred patients in their office for further evaluation. KEEP IN MIND THAT THE SPECIALIST HAS HIS/HER OWN OFFICE POLICIES WHICH MAY REQUIRE PROPER INSURANCE OR PAYMENT UP FRONT BEFORE THE SPECIALIST WILL SEE YOU. It is your responsibility to call the specialist physician to make an appointment. We do not have the ability to refer patients to specialists/physicians that work with specific insurance companies. Please be advised that all financial charges or billing practices are determined by that practice, not the hospital. If your insurance company requires that you see a specialist from their approved list, it is your responsibility to contact your insurance company to make those arrangements. It is also your responsibility to follow any other requirements of your insurance company necessary to obtain coverage for claims submitted. We will bill your insurance; however, you are responsible today for any co-pay amounts. You will receive a separate bill for any services you may have received including: emergency, radiology, or pathology physicians. Patient Name:ALEXANDREA PAN I have received this information and was given the opportunity to ask questions. Patient/Actuarial Director Name: Patient/Actuarial Director Signature: Relationship to Patient: Clinician/Hospital Actuarial Director Signature: Please Provide a Telephone Number Where You Can Be Reached: Is it Permissible To Leave a Message? Date: documented in this encounter Plan of Treatment Not on file documented as of this encounter Visit Diagnoses Not on filedocumented in this encounter
--- OUTSIDE RECORDS SUMMARY | 2025-03-28 11:04 | XMS_ITS | Encounter Summary ---
Author Organization [employer] Address [address] [place] [address] Care Team Providers Care Medical Record Specialist Name Role Phone Unavailable Primary Care Provider Unavailabl e Encounter Details Date Type Department Care Team (Late st Contact Info) Description 11/10/2020 Transcribed Document [facility] [place] [facility] [address] [place] [address] ProviderFernanda MD [address] [place], [place] [id number] Social History Tobacco Use Types Packs/Day Years Used Date Smoking Tobacco: Never Assessed Comments Unknown Sex and Gender Information Value Date Recorded Sex Assigned at Not on file Legal Sex Female 6:10 PM CDT Gender Identity Not on file Sexual Orientation Not on file documented as of this encounter Miscellaneous Notes * Cerner Conversion Note - Historical ProviderMD - 11/10/2020 3:53 PM GANG SAW OPERATOR ED Discharge Entered On: 11/10/2020 15:53 EST Performed On: 11/10/2020 15:53 EST by Kelly Khan RN Discharge Process Patient Disposition : Discharge Personal Belongings With Patient : Yes Patient Education Completed : Yes Teaching Evaluation : Verbalizes understanding IV Discontinued : Not applicable Nursing Documentation Completed : Yes Kelly Khan RN - 11/10/2020 15:53 EST ED Discharge Discharge To : Home with ambulatory/outpatient follow-up Mode Of Departure : Ambulatory Accompanied By : Unaccompanied Prescriptions Given to Patient : Electronically sent Number of Prescriptions Given : 2 Kelly Khan RN - 11/10/2020 15:53 EST Electronically signed by Fatuma [facility] Conversion Undercoater Cerner at 01/20/2023 9:24 AM CDT documented in this encounter Plan of Treatment Not on file documented as of this encounter Visit Diagnoses Not on filedocumented in this encounter
--- OUTSIDE RECORDS SUMMARY | 2025-03-28 11:04 | XMS_ITS | Encounter Summary ---
Author Organization [employer] [facility] [employer] Address [address] [place] [address] Care Team Providers Care County Agricultural Agent Name Role Phone Unavailable Primary Care Provider Unavailabl e Encounter Details Date Type Department Care Team (Late st Contact Info) Description 11/10/2020 Transcribed Document [facility] [place] [facility] [place] [address] ProviderFernanda MD [address] [place] [address] Social History Tobacco Use Types Packs/Day Years Used Date Smoking Tobacco: Never Assessed Comments Unknown Sex and Gender Information Value Date Recorded Sex Assigned at Not on file Legal Sex Female 6:10 PM CDT Gender Identity Not on file Sexual Orientation Not on file documented as of this encounter Miscellaneous Notes * Cerner Conversion Note - Fernanda ProviderMD - 11/10/2020 2:52 PM REHAB CARE ASSISTANT Electronically signed by Fatuma [facility] Conversion Operator Assistant I Cementing Cerner at 01/20/2023 9:05 AM CDT documented in this encounter Plan of Treatment Not on file documented as of this encounter Visit Diagnoses Not on filedocumented in this encounter
--- OUTSIDE RECORDS SUMMARY | 2025-03-28 11:04 | XMS_ITS | Clinical Summary ---
Author Organization [employer] Address [address] [place] [address] Care Team Providers Care Distance Learning Unit Leader Name Role Phone Unavailable Primary Care Provider [...]
--- OUTSIDE RECORDS SUMMARY | 2025-03-28 11:04 | XMS_ITS | Encounter Summary ---
Author Organization [employer] Address [address] [place] [address] Care Team Providers Care Service Counselor Name Role Phone Unavailable Primary Care Provider Unavailabl e Encounter Details Date Type Department Care Team (Late st Contact Info) Description 11/13/2020 Transcribed Document [facility] [place] [address] [place] [address] ProviderFernanda MD [address] [place] [address] Social History Tobacco Use Types Packs/Day Years Used Date Smoking Tobacco: Never Assessed Comments Unknown Sex and Gender Information Value Date Recorded Sex Assigned at Not on file Legal Sex Female 6:10 PM CDT Gender Identity Not on file Sexual Orientation Not on file documented as of this encounter Miscellaneous Notes * Cerner Conversion Note - Historical ProviderMD - 11/13/2020 11:49 AM CARBON CAPTURE POWER PLANT ENGINEER Urine Culture Collected: 11/10/2020 12:45 Esccol Complete Body site: Specimen Type: U CleanCatch 11/13/2020 09:28 11/13/2020 11:49 (KALYANI KNOWLES PA) Reviewed by Provider, No further action required Sensitive to Rx of cefuroxime documented in this encounter Plan of Treatment Not on file documented as of this encounter Visit Diagnoses Not on filedocumented in this encounter
[2025-03-28 11:05] LABS: Hemoglobin A1C 7.3 % (4.0-6.0)
[2025-03-28 11:23] LABS: Alanine Aminotransferase 104 U/L (12-78); Albumin Level 3.5 g/dl (3.5-5.0); Albumin/Globulin Ratio 1.1 (1.1-1.8); Alkaline Phosphatase 134 U/L (38-126); Anion Gap 5.6 mEq/L (5-15); Aspartate Amino Transferase 113 U/L (14-36); Bilirubin,Total 0.6 mg/dl (0.2-1.3); Blood Urea Nitrogen 14 mg/dl (7-17); Calcium 9.2 mg/dl (8.4-10.2); Carbon Dioxide 28 mmol/L (22.0-30.0); Chloride 103 mmol/L (98-107); Estimated Glomerular Filt Rate 89 ml/min (>60); GFR (African American) 108 ML/MIN (>60); Globulin 3.3 g/dL (1.3-3.2); Glucose 110 mg/dl (74-100); Potassium 3.6 mmoL/L (3.5-5.1); Sodium 133 mmol/L (136-145); Total Protein,Serum 6.8 g/dl (6.3-8.2)
[2025-03-28] MEDS: 0.9 % SODIUM CHLORIDE 1000ML 1,000 ML 999 ML IV (12:55)
[2025-03-28 13:29] LABS: Amylase 44 U/L (30-110); Lipase 28 U/L (23-300)
[2025-03-28 14:00] VITALS: BP 115/67; PULSE 88; RESP 20; O2SAT 97
[2025-03-28 14:25] LABS: Eosinophils % 1 % (0-3); Lymphocytes % 23 % (10-50); Monocytes % 3 % (2-9); Neutrophils % 47 % (42-76); Total Cells Counted 100
[2025-03-28 14:26] LABS: Platelet Estimate Normal; RBC Morphology Normal
[2025-03-31 09:21] LABS: HBsAg Screen Negative (Negative); HCV Ab Non Reactive (Non Reactive); Hep A Ab, IGM Negative (Negative); Hep B Core Ab, IgM Negative (Negative)
== END 2025-03-28 23:59 | disposition home or self-care (01) ==
LOC: LAB 11:54 → INF 12:42
PROVIDERS: PCP Nurse Practitioner Family; Visit Provider Family Medicine
DX: R53.83 Other fatigue (principal); R10.9 Unspecified abdominal pain; N30.01 Acute cystitis with hematuria; R79.89 Other specified abnormal findings of blood chemistry
CPT/HCPCS: 36415; 80053; 80074; 82150; 83036; 83690; 85007; 85025; 85027; 86318; 87086; 96360; J7030

== ENCOUNTER 2025-04-18 10:03 | Outpatient (CLI) | payer OTHER, SELFPAY ==
--- OUTSIDE RECORDS SUMMARY | 2025-02-07 12:14 | XMS_ITS | Continuity of Care Document ---
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 Location Location Details Encounter Type Encounter Number Reason For Visit Attending Provider ADM Date DC Date Status Disposition Source [facility] Outpatient Encounter [id number] 02/07 [facility]
--- NOTE | 2025-04-18 | US_ITS ---
FINAL REPORT CLINICAL HISTORY: RIGHT FLANK PAIN COMPARISON: none FINDINGS: RENAL ULTRASOUND Ultrasound images of the kidneys were obtained. The right kidney measures 10.8 cm in length. It is normal echogenicity. There is no hydronephrosis. The left kidney measures 12.9 cm in length. It is normal echogenicity. There is no hydronephrosis. IMPRESSION: Normal renal ultrasound. Reviewed, Interpreted and Dictated by La Nena Murillo MD Transcribed by Evonne Bland Authenticated and [facility]
--- OUTSIDE RECORDS SUMMARY | 2025-04-18 10:07 | XMS_ITS | Continuity of Care Document ---
Author Organization [place] - [employer] [facility] Address [address] [place] [address] Assessment No assessment recorded. Plan of Treatment Reminders Order Date Submit Date Provider Last Modified By Organization Details Last Modified Time Details Appointments FOLLOW UP 2024 08:00A Asa Rubi PA-C Not available Not available Not available Lab None recorded. Referral None recorded. Procedures None recorded. Surgeries None recorded. Imaging US, renal - same day as the echocardi ogram u/s [address] (Scheduling), [address], [place], [address], 04/11/2025 10:12:08 US, echocardi ogram - SAME DAY THE RENAL U/S [address] (Scheduling), [address], [place], [address], 04/11/2025 10:11:43 Medication Orders Bicillin L-A 1,200,000 unit/2 mL intramusc ular syringe [address] [facility] [place], [address], 04/07/2025 08:04:54 hydrochlo rothiazid e 25 mg tablet 2024 025 [facility], [address] [place], [address], 04/04/2025 08:35:57 Patient TargetsNo targets recorded. Patient InstructionsNo instructions recorded. Reason for Referral None Reported. Problems Name Problem SNOMED Code Status Onset Date Resolution Date Notes Provider Name and Address Organization Details Recorded Time Streptococcal sore throat 33119566 Active 2024 SHILO Ortiz [address] [place] [address], [address] 8, [employer] 5 10:23:54 Adult attention deficit hyperactivity disorder 537819868 Active 2024 SHILO Ortiz [address] [place] [address], 07613-560 8, [employer] 5 16:17:03 Generalized anxiety disorder 71406885 Active 2024 SHILO Ortiz [address] [place] [address], 94853-280 8, [employer] 5 16:17:09 Depressive disorder 39129470 Active 2024 SHILO Ortiz [address] [place] [address], 420[address]-616 8, [employer] 5 16:17:06 Fibromyalgia 593077988 Active 2024 SHILO Ortiz [address] [place] [address], 29376-907 8, [employer] 5 16:17:07 Labyrinthitis 58971636 Active 2024 SHILO Ortiz [address] [place] [address], 63443-851 8, [employer] 5 16:17:13 Dark yellow urine 743476516 Active 2024 SHILO Ortiz [address] [place] [address], 10486-450 8, [employer] 5 15:08:17 Right flank pain 919774987 Active 2024 SHILO Ortiz [address] [place] [address], 86848-539 8, [employer] 15:33:24 Microscopic hematuria 222970479 Active 2024 SHILO Ortiz [address] [place] [address], 49499-028 8, [employer] 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 08:34:00 Atrial fibrillation 96058779 Active 2024 SHILO Ortiz [address] [place] [address], 37164-440 8, [employer] 08:34:42 Dyspnea on exertion 93209582 Active 2024 SHILO Ortiz [address] [place] [address], 25796-837 8, [employer] 08:34:52 Problem Notes None recorded. Procedures Surgical History Date Name Laterality Status Provider Name and Address Organization Details Recorded Time Colposcopy completed India Shanksley [facility] [email or web address] 12/21/2024 10:05:32 Other completed India Stafford [facility] [facility] [facility] 12/21/2024 10:05:32 Imaging Results None recorded. Procedure Notes None recorded. Medical Equipment None Reported. Allergies Allergen ID Allergen Name Allergen Category Reaction Reaction Severity Criticality Documentation Date Start Date Code Code System Note Provider Name and Address Organization Details Recorded Time 11231 codeine medicatio n Not available Not available Not available 12/21/2024 2670 [employer]Norm India Shanksley arlene, [employer] 5 10:11:54 Medications Name Sig Start Date Stop Date Status Note LastModified by Organization Details LastModified Time cyclobenzap rine 10 mg tablet TAKE 1 TABLET BY MOUTH THREE TIMES DAILY NEEDED FOR MUSCLE SPASM 12/21 completed Not Available Not Available Not Available Concerta 18 mg tablet,exte nded release TAKE 1 TABLET BY MOUTH ONCE DAILY 12/21 completed Not Available Not Available Not Available prednisone 20 mg tablet TAKE 1 TABLET BY MOUTH TWICE DAILY FOR 5 DAYS 04/01 completed Not Available Not Available Not Available dextroamphe tamine-amph etamine 10 mg tablet TAKE 1 TABLET BY MOUTH ONCE DAILY 12/21 completed Not Available Not Available Not Available sulfamethox azole 800 mg-trimetho prim 160 mg tablet 12/21 completed Not Available Not Available Not Available amoxicillin 875 mg tablet TAKE 1 TABLET BY MOUTH EVERY 12 HOURS FOR 10 DAYS 01/10 completed Not Available Not Available Not Available meclizine 25 mg tablet TAKE 1 TABLET BY MOUTH THREE TIMES DAILY FOR 10 DAYS 04/01 completed Not Available Not Available Not Available hydrochloro thiazide 25 mg tablet TAKE 1 TABLET BY MOUTH ONCE DAILY FOR 30 DAYS active Not Available Not Available No t Available cefdinir 300 mg capsule TAKE 1 CAPSULE BY MOUTH EVERY 12 HOURS FOR 10 DAYS active Not Available Not Available No t Available Bicillin L-A 1,200,000 unit/2 mL intramuscul ar syringe Inject 2 mL by intramusc ular route. 04/07 completed Not Available Not Available Not Available atomoxetine 40 mg capsule TAKE 1 CAPSULE BY MOUTH ONCE DAILY 12/21 completed Not Available Not Available Not Available nitrofurant oin monohydrate /macrocryst als 100 mg capsule 12/21 completed Not Available Not Available Not Available Vyvanse 30 mg capsule TAKE 1 CAPSULE BY MOUTH ONCE DAILY 12/21 completed Not Available Not Available Not Available Vitals Date Recorded Body height Body mass index (BMI) Body weight Body temperature Heart rate Oxygen saturation Oxygen saturation in Arterial blood by Pulse oximetry Systolic And Diastolic Systolic And Diastolic Provider Name and Address Organization Details Last Updated DateTime 5 167.64 cm 29 kg/m2 91879.4 7 g 98.2 [degF] 114 /min 95 % 95 % 80/60 mm[Hg] 80/60 mm[Hg] Michelle [facility] [employer]. 5 08:07:07 Social History Question Answer Notes LastModified by Organizat ion Details LastModified Time Tobacco Smoking Status Never Smoker [place] jacobs [employer] 12/21/2024 10:05:26 Do You Have An Advance Directive? No [email or web address] Information not available 12/21/2024 Is Your Home Air Conditioned? Yes [email or web address] Information not available 12/21/2024 How Many Years Have You Consumed Alcohol? 20 [email or web address] Information not available 12/21/2024 Do You Wear A Helmet When Biking? No [email or web address] Information not available 12/21/2024 Are You Blind Or Do You Have Difficulty Seeing? No Information not available 12/21/2024 What Is Your Level Of Caffeine Consumption? Occasional [email or web address] Information not available 12/21/2024 What Type Of Cougar Hunter Do You Use? None [email or web address] Information not available 12/21/2024 Have You Been To An Area Known To Be High Risk For COVID-19? No Information not available 01/10/2025 Are You Deaf Or Do You Have Serious Difficulty Hearing? No [email or web address] Information not available 12/21/2024 What Type Of Diet Are You Following? REGULAR [email or web address] Information not available 12/21/2024 How Many Days Of Moderate To Strenuous Exercise, Like A Brisk Walk, Did You Do In The Last 7 Days? 4 [email or web address] Information not available 12/21/2024 Have There Been Any Changes To Your Family Or Social Situation? Yes [email or web address] Information no t available 12/21/2024 Are There Any Guns Present In Your Home? No [email or web address] Information not available 12/21/2024 Which Of Your Hands Is Dominant? Left Information not available 12/21/2024 What Is Your Home Situation? Mother [email or web address] Information not available 12/21/2024 Do You Have A Medical Power Of Dry Cell Tester? No Information not available 12/21/2024 What Was The Date Of Your Most Recent Tobacco Screening? 04/07/2025 Information not available 04/07/2025 Do You Have Any Pets? Yes [email or web address] Information not available 12/21/2024 Do You Use Protection During Sex? No Information not available 12/21/2024 What Is Your Relationship Status? [email or web address] Information not available 12/21/2024 Have You Repeated Any Grades? No [email or web address] Information not available 12/21/2024 Do You Use Your Seat Belt Or Car Seat Routinely? Yes [email or web address] Information not available 12/21/2024 Are You Sexually Active? Yes [email or web address] Information not available 12/21/2024 Do You Have Any Siblings? Yes, [email or web address] Information not available 12/21/2024 Do You Have Smoke And Carbon Monoxide Detectors In Your Home? Yes Information not available 12/21/2024 Are You Passively Exposed To Smoke? No [email or web address] Information no t available 12/21/2024 Are There Any Smokers In Your House? No [email or web address] Information not available 12/21/2024 Do You Use Sunscreen Routinely? No [email or web address] Information not available 12/21/2024 Has Tobacco Cessation Counseling Been Provided? No Information not available 01/10/2025 Have You Recently Traveled Abroad? No Information not available 01/10/2025 Do You Have Difficulty Walking Or Climbing Stairs? No [email or web address] Information not available 12/21/2024 Are You Currently In School? No Information not available 01/10/2025 Do You Have Any Dietary Restrictions? No Information not available 01/10/2025 Sex: Unknown Functional Status Question Answer Note LastModified by Organizat ion Details LastModified Time Do you use any illicit or recreational drugs? No [email or web address] Information not available 12/21/2024 Do you or have you ever used any other forms of tobacco or nicotine? No Information not available 01/10/2025 What is your level of alcohol consumption? Occasional [email or web address] Information not available 12/21/2024 Are you currently employed? No [email or web address] Information not available 12/21/2024 Do you have transportation difficulties? No Information not available 01/10/2025 Are you able to walk? YESWOREST [email or web address] Information not available 12/21/2024 Do you have difficulty doing errands alone? No [email or web address] Information not available 12/21/2024 Are you able to care for yourself? Yes Information n ot available 12/21/2024 Do you have difficulty dressing or bathing? No [email or web address] Information not available 12/21/2024 What is your exercise level? Moderate [email or web address] Information not available 12/21/2024 Mental Status Question Answer Note LastModified by Organization D etails LastModified Time Do you have difficulty concentrating, remembering or making decisions? Yes [email or web address] Information no t available 12/21/2024 Are you or have you been involved with bullying? Yes [email or web address] Information not available 12/21/2024 Family History Relationship Description Onset Age of this Age Resolved Age Notes LastModified by Organization Details LastModified Time Father Hypercholest erolemia [email or web address] Not available 2024 10:05:04 Father Malignant tumor of colon efumved87 Not available 2024 10:05:04 Father Arthritis [email or web address] Not availab le 12/21/2024 10:05:04 Paternal Grandmother Malignant tumor of breast [email or web address] Not available 2024 10:05:04 Mother Hypercholest erolemia [email or web address] Not available 2024 10:05:04 Mother Anxiety disorder [email or web address] Not available 2024 10:05:04 Mother Depressive disorder [email or web address] Not available 2024 10:05:04 Mother Arthritis Not availab le 12/21/2024 10:05:04 Mother Heart disease Not available 2024 10:05:04 Maternal Grandmother Anxiety disorder Not available 2024 10:05:04 Maternal Grandmother Arthritis [email or web address] Not available 10:05:04 Sister Anxiety disorder [email or web address] Not available 2024 10:05:04 Sister Depressive disorder Not available 2024 10:05:04 Maternal Grandfather Harmful pattern of use of alcohol [email or web address] Not available 2024 10:05:04 Paternal Grandfather Arthritis Not available 10:05:04 Medical History Condition Response Allergies (Food, seasonal, environmental ) Y Depression Y Anxiety Disorder Y Vision or Eye Problems Y Bladder or Kidney Problems Y Fibromyalgia Y Headaches Y GI Problems Y ADD/ADHD Y Gynecological History Statement/Question Response Date of LMP 04/01/2025 Menses Monthly Y HPV Vaccine N Date of Last Pap Smear Most Recent Mammogram Age at First Child 40 Obstetrics History GPAL:G 0 P 0 0 0 0 Past Encounters Encounter ID Performer Location Encounter Start Date Encounter Closed Date Diagnosis/Indication Diagnosis SNOMED-CT Code Diagnosis ICD10 Code Diagnosis Note [id number] SHILO Ortiz [facility] [address] [place] [address] 04/01/2025 14:32:59 04/01/2025 15:29:45 Dark yellow urine 862116193 R39.89 HIV screening 510891027 Z11.4 Right flank pain 4720462 09 R10.9 Microscopic hematuria 19 3281227 R31.29 [id number] SHILO Ortiz [facility] [address] [place] [address] 04/04/2025 07:55:54 04/04/2025 08:25:26 Post-streptococcal disorder 257730284 M35.9 RTC 3 days to re evaluateRe viewed labs with patient Dyspnea on exertion 6084 5006 R06.09 Right flank pain 0281646 09 R10.9 Health Concerns Section Related Observation LastModified by Organization Detai ls LastModified Time None Recorded Concern Status LastModified by Organization Details LastModified Time None Recorded Payers Encounter Date Sequence Insurance Name Policy Number Policy Valenzuela Covered Member ID Valenzuela Member ID Guarantor Name 04/04/2025 1 [employer] [facility] (MEDICAID HMO) Alexandrea Pan [id number] Alexandrea Pan Notes Date Note Type Note Provider Name and Address Organization Details Recorded Time 04/04/2025 text/html Patient presents for followup and review labs. ASO and liver enzymes were elevated. Started Cefdinir on Friday. Feeling some better. Less pain. Still retaining fluid. No fever today. SHILO Ortiz [address] [place] [address], [phone], [place] [employer] 04/04/2025 12:02:10 OBGyn Episode No OBEpisode recorded.
--- OUTSIDE RECORDS SUMMARY | 2025-04-18 10:07 | XMS_ITS | Encounter Summary ---
Author Organization [employer] ([place], [place], [place], [place]) Address [address] [place] [address] Care Team Providers Care Cable Swager Name Role Phone Unavailable Primary Care Provider Unavailabl e Encounter Details Date Type Department Care Team (Late st Contact Info) Description 11/10/2020 Transcribed Document [facility] [place] Family Medicine [address] [place] [address] ProviderFernanda MD [address] [place] [address] Social History Tobacco Use Types Packs/Day Years Used Date Smoking Tobacco: Never Assessed Comments Unknown Sex and Gender Information Value Date Recorded Sex Assigned at Not on file Legal Sex Female 6:10 PM CDT Gender Identity Not on file Sexual Orientation Not on file documented as of this encounter Miscellaneous Notes * Cerner Conversion Note - Fernanda ProviderMD - 11/10/2020 2:58 PM LABORER MARINE TERMINAL [place] [id number] ALEXANDREA PAN :1975 Visit Time:11/10/2020 Your Visit Summary Your Care Team Primary Provider: SUSAN TURCIOS APRN-ELVER Secondary Provider: Your Diagnosis Abdominal pain Bilateral [...] to urinate, or other new/worse symptoms. Where: [address] [place] [address] OF [place]OLOGY [place], [place] [id number]- [facility] (1) Allergies codeine Immunizations This Visit No Immunizations Found Medications What How Much When Instructions Next Dose cefUROXIME (Ceftin 500 mg oral tablet) 1 Tablet(s) Oral Two Times A Day Duration: 7 Day(s) Pickup at [place] [address] phenazopyridine (Pyridium 200 mg oral tablet) 1 Tablet(s) Oral Two Times A Day Duration: 2 Day(s) Pickup at [place] [address] acetaminophen-hydrocodone (acetaminophen-HYDROcodone 325 mg-5 mg oral tablet) [...] Low Iron) Oral Every Day Pharmacy Information [facility]: [address] [place], [place] [id number] [phone] The home medications listed are only as [...] ) Urine Bilirubin Dipstick: Negative Urine Specific [place]: 1.022 -- Normal range between ( 1.005 [...] these instructions at home: Medicines ??? Take bkqk-aea-kxvguty and prescription medicines only as told by [...] the blood stops without treatment. ??? Take uevy-bpy-arruwos and prescription medicines only as told by your health care provider. ??? Drink enough fluid to keep your urine clear or pale yellow. This information is not intended to replace advice given to you by your health care provider. Make sure you discuss any questions you have with your health care provider. Document Released: 09/22/2006 Document Revised: 02/16/2020 Document Reviewed: 10/25/2017 [employer] Patient Education ?? 2020 Flowline. Kidney Stones Kidney stones are solid, rock-like [...] these instructions at home: Medicines ??? Take fqsa-zvz-grodbcf and prescription medicines only as told by [...] 09/22/2006 Document Revised: 02/08/2020 Document Reviewed: 02/08/2020 [employer] Patient Education ?? 2020 Flowline. Urinary Tract Infection, Adult A urinary tract [...] these instructions at home: Medicines ??? Take sioa-joa-sqqfkpr and prescription medicines only as told by [...] 03/10/2009 Document Revised: 09/09/2019 Document Reviewed: 04/01/2019 [employer] Patient Education ?? 2020 Flowline. Emergency Awareness and Preventative Care STROKE is [...] Assistance with quitting is available by contacting 3-490-SLNA-NOW. This is a free resource providing counseling, [...] was given the opportunity to ask questions. Patient/Manager Heavy Equipment Name: Patient/Manager Heavy Equipment Signature: Relationship to Patient: Clinician/Hospital Manager Heavy Equipment Signature: Please Provide a Telephone Number Where You Can Be Reached: Is it Permissible To Leave a Message? Date: documented in this encounter Plan of Treatment Not on file documented as of this encounter Visit Diagnoses Not on filedocumented in this encounter
--- OUTSIDE RECORDS SUMMARY | 2025-04-18 10:07 | XMS_ITS | Clinical Summary ---
Author Organization [employer] ([place], [place], [place], [place]) Address [address] [place] [address] Care Team Providers Care Instructional Design Consultant Name Role Phone Unavailable Primary Care [...]
--- OUTSIDE RECORDS SUMMARY | 2025-04-18 10:07 | XMS_ITS | Referral Summary ---
Author Organization [employer] ([place], [place], [place], [place]) Address [address] [place] [address] Care Team Providers Care Retail Inventory Control Clerk Name Role Phone Unavailable Primary Care Provider [...]
--- OUTSIDE RECORDS SUMMARY | 2025-04-18 10:07 | XMS_ITS | Encounter Summary ---
Author Organization [employer] ([place], [place], [place], [place]) Address [address] [place] [address] Care Team Providers Care Javascript Application Developer Name Role Phone Unavailable Primary Care Provider Unavailabl e Encounter Details Date Type Department Care Team (Late st Contact Info) Description 11/10/2020 Transcribed Document [facility] [place] Family [place] [address] ProviderFernanda MD [address] [place] [address] Social History Tobacco Use Types Packs/Day Years Used Date Smoking Tobacco: Never Assessed Comments Unknown Sex and Gender Information Value Date Recorded Sex Assigned at Not on file Legal Sex Female 6:10 PM CDT Gender Identity Not on file Sexual Orientation Not on file documented as of this encounter Miscellaneous Notes * Cerner Conversion Note - Historical ProviderMD - 11/10/2020 12:29 PM HEEL SEAT FILLER ED Triage Entered On: 11/10/2020 12:44 EST Performed On: 11/10/2020 12:42 EST by Lexi Snow Flex Team red hat engineer Triage Across the Room Chief Complaint : pt having urinary problems, for last few days, urine discolored, lower abd pain with cramping, Triage Date/Time : 11/10/2020 12:42 EST Lexi Snow Flex Team Rn - 11/10/2020 12:42 EST DCP GENERIC CODE Tracking Acuity : 3 - Urgent Tracking Group : [facility] Lexi Snow Flex Team Rn - 11/10/2020 12:42 EST Mode of Arrival : Ambulatory Transported to ED by : Private vehicle To Room Via : Ambulate Accompanied By : Unaccompanied ED Vital Signs : Document Height & Weight : Document ED Allergies : Document ED Reason for Visit : Document Tetanus Immunization : Less than 5 years Time Checker Needed : No Lexi Snow Flex Team [...] Onset Date: Unspecified ; Created By: Contributor_system HIST_CERRAZA; Reaction Status: Active ; Category: Drug ; Substance: codeine ; Type: Allergy ; Updated By: Contributor_system HIST_GREY; Reviewed Date: 11/10/2020 12:43 EST Diagnosis Control ED (As Of: 11/10/2020 12:44:45 EST) Problems(Active) 28 weeks gestation of (SNOMED CT :541400954 ) Name of Problem: 28 weeks gestation of ; Recorder: PAT SUTTON MD; Confirmation: Confirmed ; Classification: Medical ; Code: [id number] ; Contributor System: Krux ; Last Updated: 05/22/2018 17:04 EDT ; Life Cycle Date: 05/22/2018 ; Life Cycle Status: Active ; Responsible Provider: PAT SUTTON MD; Vocabulary: SNOMED CT Cough (SNOMED CT :35615761 ) Name of Problem: Cough ; Recorder: PAT SUTTON MD; Confirmation: Confirmed ; Classification: Medical ; Code: [id number] ; Contributor System: MobileAwareChart ; Last Updated: 05/22/2018 17:05 EDT ; Life Cycle Date: 05/22/2018 ; Life Cycle Status: Active ; Responsible Provider: PAT SUTTON MD; Vocabulary: SNOMED CT Vaginal discharge in in third trimester (SNOMED CT :387163807 ) Name of Problem: Vaginal discharge in in third trimester ; Recorder: PAT SUTTON MD; Confirmation: Confirmed ; Classification: Medical ; Code: [id number] ; Contributor System: Krux ; Last Updated: 05/22/2018 17:05 EDT ; Life Cycle Date: 05/22/2018 ; Life Cycle Status: Active ; Responsible Provider: PAT SUTTON MD; Vocabulary: SNOMED CT Diagnoses(Active) Abdominal pain Date: 11/10/2020 ; Diagnosis Type: Reason For Visit ; Confirmation: Complaint of ; Clinical Dx: Abdominal pain ; Classification: Medical ; Clinical Service: Non-Specified ; Code: PNED ; Probability: 0 ; Diagnosis Code: [id number] ED Height and Weight Height Source : Stated Height Entry Format : [place] Height, Feet : 5 ft(Converted to: 152 cm, 60 Inch) Height, Inches : 5 Inch(Converted to: 0 ft 5 Inch, 12.70 cm) Clinical Height : 165.1 cm Weight Source, ED : Critical estimated dosing weight Weight Entry Format : [place] Weight, Pounds : 195 lb Clinical Dosing Weight : 88.64 kg Body Surface Area (BSA) : 1.96 m2 Body Mass Index : 32.5 kg/m2 (HI) [place] Body Weight (IBW) : 56.59 kg Lexi [...] the text rendition version of the form. Electronically signed by Dheeraj Burris Conversion Project Development Coordinator Cerner at 01/20/2023 9:14 AM CDT documented in this encounter Plan of Treatment Not on file documented as of this encounter Visit Diagnoses Not on filedocumented in this encounter
--- OUTSIDE RECORDS SUMMARY | 2025-04-18 10:07 | XMS_ITS | Encounter Summary ---
Author Organization [employer] ([place], [place], [place], [place]) Address [address] [place] [address] Care Team Providers Care Rubber Goods Cutter Finisher Name Role Phone Unavailable Primary Care Provider Unavailabl e Encounter Details Date Type Department Care Team (Late st Contact Info) Description 11/10/2020 Transcribed Document [facility] [place] Family Medicine [address] [place] [address] ProviderFernanda MD [address] [place], [place] [address] Social History Tobacco Use Types Packs/Day Years Used Date Smoking Tobacco: Never Assessed Comments Unknown Sex and Gender Information Value Date Recorded Sex Assigned at Not on file Legal Sex Female 6:10 PM CDT Gender Identity Not on file Sexual Orientation Not on file documented as of this encounter Miscellaneous Notes * Cerner Conversion Note - Historical ProviderMD - 11/10/2020 3:53 PM NETWORK ARCHITECT ED Discharge Entered On: 11/10/2020 15:53 EST [...] 11/10/2020 15:53 EST Electronically signed by Fatuma [facility] Conversion Heel Edge Inker Machine Cerner at 01/20/2023 9:24 AM CDT documented in this encounter Plan of Treatment Not on file documented as of this encounter Visit Diagnoses Not on filedocumented in this encounter
--- OUTSIDE RECORDS SUMMARY | 2025-04-18 10:07 | XMS_ITS | Encounter Summary ---
Author Organization [employer] ([place], [place], [place], [place]) Address [address] [place] [address] Care Team Providers Care Facility Sales And Admin Name Role Phone Unavailable Primary Care Provider Unavailabl e Encounter Details Date Type Department Care Team (Late st Contact Info) Description 11/13/2020 Transcribed Document [facility] [place] Family Medicine [address] [place] [address] ProviderFernanda MD [address] [place] [address] Social History Tobacco Use Types [...] - Historical ProviderMD - 11/13/2020 11:49 AM CAR TRIMMER Urine Culture Collected: 11/10/2020 12:45 Esccol Complete Body site: Specimen Type: U CleanCatch 11/13/2020 09:28 11/13/2020 11:49 (KALYANI KNOWLES PA) Reviewed by Provider, No further action required Sensitive to Rx of cefuroxime documented in this encounter Plan of Treatment Not on file documented as of this encounter Visit Diagnoses Not on filedocumented in this encounter
--- OUTSIDE RECORDS SUMMARY | 2025-04-18 10:07 | XMS_ITS | Encounter Summary ---
Author Organization [employer] ([place], [place], [place], [place]) Address [address] [place] [address] Care Team Providers Care Director Plans Name Role Phone Unavailable Primary Care Provider Unavailabl e Encounter Details Date Type Department Care Team (Late st Contact Info) Description 11/10/2020 Transcribed Document [facility] [place] Family Medicine [address] [place] [address] ProviderFernanda MD [address] [place] [address] Social History Tobacco Use Types Packs/Day Years Used Date Smoking Tobacco: Never Assessed Comments Unknown Sex and Gender Information Value Date Recorded Sex Assigned at Not on file Legal Sex Female 6:10 PM CDT Gender Identity Not on file Sexual Orientation Not on file documented as of this encounter Miscellaneous Notes * Cerner Conversion Note - Historical ProviderMD - 11/10/2020 2:52 PM FURNACE FITTER Electronically signed by Interface, [facility] Conversion Health And Safety Instructor Cerner at 01/20/2023 9:05 AM CDT documented in this encounter Plan of Treatment Not on file documented as of this encounter Visit Diagnoses Not on filedocumented in this encounter
--- OUTSIDE RECORDS SUMMARY | 2025-04-18 10:08 | XMS_ITS | Data Portability ---
Author Organization [employer] [facility] Address [address] [place] [address] Assessment No assessment recorded. Plan of Treatment Reminders Order Date Submit Date Provider Last Modified By Organization Details Last Modified Time Details Appointments FOLLOW UP 30 2024 08:00A Asa Rubi PA-C Not available Not available Not available Lab CBC w/ auto diff 2024 025 [facility], [address] [place], [address], 04/05/2025 04:07:08 CMP, serum or plasma 2024 025 [facility], [address] [place], [address], 04/05/2025 04:07:08 streptoco ccal DNAse B + ASO Ab panel, serum 2024 025 [facility], [address] [place], [address], 04/05/2025 04:07:07 C3 (compleme nt), serum or plasma 2024 025 [facility], [address] [place], [address], 04/05/2025 04:07:09 C4 (compleme nt), serum or plasma 2024 025 [facility], [place], [address], 04/05/2025 04:07:09 urinalysi s, dipstick [address], [address] [place], [address], 04/01/2025 15:22:13 culture, urine 2024 025 [place] [facility] [address] [place], [address], 04/05/2025 04:07:10 HbA1c (hemoglob in A1c), blood 2024 025 [place] [facility] [address] [place], [address], 04/05/2025 04:07:08 HIV 1 + 2, meaningfu l use set 2024 025 [place] [facility] [address] [place], [address], 04/05/2025 04:07:10 rapid strep group A, throat [address], [address] [place], [address], 12/21/2024 10:40:22 Referral None recorded. Procedures None recorded. Surgeries None recorded. Imaging US, renal - same day as the echocardi ogram u/s [address] (Scheduling), [address], [place], [address], 04/11/2025 10:12:08 US, echocardi ogram - SAME DAY THE RENAL U/S [address] (Scheduling), [address], [place], [address], 04/11/2025 10:11:43 Medication Orders Bicillin L-A 1,200,000 unit/2 mL intramusc ular syringe 2024 025 [facility], [address] [place] [address], [address], 04/07/2025 08:04:54 hydrochlo rothiazid e 25 mg tablet [address] [facility], [address] [place] [address], [address], 04/04/2025 08:35:57 cefdinir 300 mg capsule 2024 025 [place] [address], [address] [place] [address], [address], 04/01/2025 15:32:46 meclizine 25 mg tablet 2024 025 [place] [address], [address] [place] [address], [address], 04/01/2025 14:42:20 prednison e 20 mg tablet 2024 025 [place] [address], [address] [place] [address], [address], 04/01/2025 14:42:23 amoxicill in 875 mg tablet 2024 025 [place] [address], [address] [place] [address], [address], 01/10/2025 15:54:18 Patient TargetsNo targets recorded. Patient Instructions Encounter Date Encounter Id Patient Instructions Last Modified By Organization Details Last Modified Time 12/21/2024 [id number] strep throat: ca re instructions [email or web address] Not available 12/21/2024 10:40:22 learning about mood disorders [email or web address] Not available 12/21/2024 15:54:54 attention defici t hyperactivity disorder (ADHD) in adults: care instructions [email or web address] Not available 12/21/2024 15:54:54 mental health assessment* JENNIFER Not available 12/21/2024 11:03:37 [facility] Packet Adult Not available 12/21/2024 10:40:22 01/10/2025 [id number] labyrinthitis: care instructions Not available 01/10/2025 16:16:46 04/01/2025 [id number] blood in the urine: care instructions [email or web address] Not available 04/01/2025 15:35:11 HIV testing: car e instructions [email or web address] Not available 04/01/2025 15:22:13 Reviewed recent labs Concern for PSGN Will check additional labs Hydrate over week, take Cefdinir as prescribed RTC Friday morning to recheck - to ER if worse over weekend Not available 04/01/2025 15:34:11 Reason for Referral None Reported. Results Created Date Observation Date Name Description Value Unit Range Abnormal Flag Note LastModifiedBy Organization Detail LastModifiedTime 12/22/1912/21/2024 rapid strep group A, throa t Strep positi ve Not Available [facility] [address] [place] [address], [place], [address], 12/21/2024 10:18:28 04/01/20 25 04/02/2025 ASO+A DNASE antistreptol ysin O Ab 808.0 IU/mL 0.0-20 0.0 above high normal Resul ts confi rmed on dilut ion. Not Available [facility] ([facility]) [address] [place], [address], 04/05/2025 04:07:07 04/01/20 25 04/05/2025 ASO+A DNASE anti-dnase B strep antibodies 327 U/mL 0-120 above high normal Not Available [facility] ([facility]) [address] [facility], [place], [address], 04/05/2025 04:07:07 04/01/20 25 04/02/2025 CBC WITH DIFFE RENTI AL/PL ATELE T WBC 12.8 x10e3 /uL 3.4-10 .8 above high normal Not Available [facility] ([facility]) [address] [place], [address], 04/05/2025 04:07:08 04/01/20 25 04/02/2025 CBC WITH DIFFE RENTI AL/PL ATELE T RBC 4.93 x10e6 /uL 3.77-5 .28 normal Not Available [facility] ([facility]) [address] [place], [address], 04/05/2025 04:07:08 04/01/20 25 04/02/2025 CBC WITH DIFFE RENTI AL/PL ATELE T hemoglobin 13.3 g/dL 11.1-1 5.9 normal Not Available [facility] ([facility]) [address] [place], [address], 04/05/2025 04:07:08 04/01/20 25 04/02/2025 CBC WITH DIFFE RENTI AL/PL ATELE T hematocrit 41.4 % 34.0-4 6.6 normal Not Available [facility] ([facility]) [address] [place], [address], 04/05/2025 04:07:08 04/01/20 25 04/02/2025 CBC WITH DIFFE RENTI AL/PL ATELE T MCV 84 fL 79-97 normal Not Available [facility] ([facility]) [address] [place], [address], 04/05/2025 04:07:08 04/01/20 25 04/02/2025 CBC WITH DIFFE RENTI AL/PL ATELE T MCH 27.0 pg 26.6-3 3.0 normal Not Available [facility] ([facility]) [address] [place], [address], 04/05/2025 04:07:08 04/01/20 25 04/02/2025 CBC WITH DIFFE RENTI AL/PL ATELE T MCHC 32.1 g/dL 31.5-3 5.7 normal Not Available [facility] ([facility]) [address] [facility], [place], [address], 04/05/2025 04:07:08 04/01/20 25 04/02/2025 CBC WITH DIFFE RENTI AL/PL ATELE T RDW 15.2 % 11.7-1 5.4 Not Available [facility] ([facility]) [address] [facility], [place], [address], 04/05/2025 04:07:08 04/01/20 25 04/02/2025 CBC WITH DIFFE RENTI AL/PL ATELE T platelets 197 x10e3 /uL 150-45 0 normal Not Available [facility] ([facility]) [address] [facility], [place], [address], 04/05/2025 04:07:08 04/01/20 25 04/02/2025 CBC WITH DIFFE RENTI AL/PL ATELE T neutrophils 32 % not estab. normal Not Available [facility] ([facility]) [address] [facility], [place], [address], 04/05/2025 04:07:08 04/01/20 25 04/02/2025 CBC WITH DIFFE RENTI AL/PL ATELE T lymphs 53 % not estab. normal Atypi lacey lymph ocyte s. Not Available [facility] ([facility]) [address] [facility], [place], [address], 04/05/2025 04:07:08 04/01/20 25 04/02/2025 CBC WITH DIFFE RENTI AL/PL ATELE T monocytes 13 % not estab. normal Not Available [facility] ([facility]) [address] [facility], [place], [address], 04/05/2025 04:07:08 04/01/20 25 04/02/2025 CBC WITH DIFFE RENTI AL/PL ATELE T eos 1 % not estab. normal Not Available [facility] ([facility]) [address] [facility], [place], [address], 04/05/2025 04:07:08 04/01/2004/02/2025 CBC WITH DIFFE RENTI AL/PL ATELE T basos 1 % not estab. normal Not Available [facility] ([facility]) [address] [facility], [place], [address], 04/05/2025 04:07:08 04/01/20 25 04/02/2025 CBC WITH DIFFE RENTI AL/PL ATELE T immature cells TRACKMAN Not Available [facility] [address] [facility], [place], [address], 04/05/2025 04:07:08 04/01/20 25 04/02/2025 CBC WITH DIFFE RENTI AL/PL ATELE T neutrophils (absolute) 4.1 x10e3 /uL 1.4-7. 0 normal Not Available [facility] ([facility]) [address] [facility], [place], [address], 04/05/2025 04:07:08 04/01/20 25 04/02/2025 CBC WITH DIFFE RENTI AL/PL ATELE T lymphs (absolute) 6.7 x10e3 /uL 0.7-3. 1 above high normal Not Available [facility] ([facility]) [address] [place], [address], 04/05/2025 04:07:08 04/01/2004/02/2025 CBC WITH DIFFE RENTI AL/PL ATELE T monocytes(ab solute) 1.6 x10e3 /uL 0.1-0. 9 above high normal Not Available [facility] ([facility]) [address] [place], [address], 04/05/2025 04:07:08 04/01/20 25 04/02/2025 CBC WITH DIFFE RENTI AL/PL ATELE T eos (absolute) 0.2 x10e3 /uL 0.0-0. 4 normal Not Available [facility] ([facility]) [address] [facility], [place], [address], 04/05/2025 04:07:08 04/01/20 25 04/02/2025 CBC WITH DIFFE RENTI AL/PL ATELE T baso (absolute) 0.2 x10e3 /uL 0.0-0. 2 normal Not Available [facility] ([facility]) [address] [facility], [place], [address], 04/05/2025 04:07:08 04/01/20 25 04/02/2025 CBC WITH DIFFE RENTI AL/PL ATELE T immature granulocytes 0 % not estab. Not Available [facility] ([facility]) [address] [facility], [place], [address], 04/05/2025 04:07:08 04/01/20 25 04/02/2025 CBC WITH DIFFE RENTI AL/PL ATELE T immature grans (abs) 0.0 x10e3 /uL 0.0-0. 1 Not Available [facility] ([facility]) [address] [facility], [place], [address], 04/05/2025 04:07:08 04/01/20 25 04/02/2025 CBC WITH DIFFE RENTI AL/PL ATELE T NRBC TRACKMAN Not Available [facility] ([facility]) [address] [facility], [place], [address], 04/05/2025 04:07:08 04/01/20 25 04/02/2025 CBC WITH DIFFE RENTI AL/PL ATELE T hematology comments: Note: Verif ied by zeynep reyesi uzair n. Not Available [facility] ([facility]) [address] [facility], [place], [address], 04/05/2025 04:07:08 04/01/20 25 04/02/2025 COMP. METAB OLIC PANEL (14) glucose 111 mg/dL 70-99 above high normal Not Available [facility] ([facility]) [address] [place], [address], 04/05/2025 04:07:08 04/01/20 25 04/02/2025 COMP. METAB OLIC PANEL (14) BUN 10 mg/dL 6-24 normal Not Available [facility] ([facility]) [address] [place], [address], 04/05/2025 04:07:08 04/01/20 25 04/02/2025 COMP. METAB OLIC PANEL (14) creatinine 0.64 mg/dL 0.57-1 .00 normal Not Available [facility] ([facility]) [address] [place], [address], 04/05/2025 04:07:08 04/01/20 25 04/02/2025 COMP. METAB OLIC PANEL (14) eGFR 108 mL/mi n/1.7 3 >59 normal Not Available [facility] ([facility]) [address] [place], [address], 04/05/2025 04:07:08 04/01/20 25 04/02/2025 COMP. METAB OLIC PANEL (14) BUN/creatini ne ratio 16 9-23 normal Not Available [facility]) [address] [place], [address], 04/05/2025 04:07:08 04/01/20 25 04/02/2025 COMP. METAB OLIC PANEL (14) sodium 133 mmol/ L 134-14 4 below low normal Not Available [facility] ([facility]) [address] [place], [address], 04/05/2025 04:07:08 04/01/20 25 04/02/2025 COMP. METAB OLIC PANEL (14) potassium 4.1 mmol/ L 3.5-5. 2 normal Not Available [facility] ([facility]) [address] [place], [address], 04/05/2025 04:07:08 04/01/20 25 04/02/2025 COMP. METAB OLIC PANEL (14) chloride 96 mmol/ L 96-106 normal Not Available [facility] ([facility]) [address] [place], [address], 04/05/2025 04:07:08 04/01/20 25 04/02/2025 COMP. METAB OLIC PANEL (14) carbon dioxide, total 23 mmol/ L 20-29 normal Not Available [facility] ([facility]) [address] [place], [address], 04/05/2025 04:07:08 04/01/20 25 04/02/2025 COMP. METAB OLIC PANEL (14) calcium 7.9 mg/dL 8.7-10 .2 below low normal Not Available [facility] ([facility]) [address] [place], [address], 04/05/2025 04:07:08 04/01/20 25 04/02/2025 COMP. METAB OLIC PANEL (14) protein, total 6.2 g/dL 6.0-8. 5 normal Not Available [facility] ([facility]) [address] [facility] [place], [address], 04/05/2025 04:07:08 04/01/20 25 04/02/2025 COMP. METAB OLIC PANEL (14) albumin 3.1 g/dL 3.9-4. 9 below low normal Not Available [facility] ([facility]) [address] [facility] [place], [address], 04/05/2025 04:07:08 04/01/20 25 04/02/2025 COMP. METAB OLIC PANEL (14) globulin, total 3.1 g/dL 1.5-4. 5 Not Available [facility] ([facility]) [address] [facility] [place], [address], 04/05/2025 04:07:08 04/01/20 25 04/02/2025 COMP. METAB OLIC PANEL (14) bilirubin, total 0.4 mg/dL 0.0-1. 2 normal Not Available [facility] ([facility]) [address] [place], [address], 04/05/2025 04:07:08 04/01/20 25 04/02/2025 COMP. METAB OLIC PANEL (14) alkaline phosphatase 125 IU/L 44-121 above high normal Not Available [facility] ([facility]) [address] [place], [address], 04/05/2025 04:07:08 04/01/20 25 04/02/2025 COMP. METAB OLIC PANEL (14) AST (SGOT) 71 IU/L 0-40 above high normal Not Available [facility] ([facility]) [address] [place], [address], 04/05/2025 04:07:08 04/01/20 25 04/02/2025 COMP. METAB OLIC PANEL (14) ALT (SGPT) 60 IU/L 0-32 above high normal Not Available [facility] ([facility]) [address] [place], [address], 04/05/2025 04:07:08 04/01/20 25 04/02/2025 HEMOG LOBIN A1C hemoglobin A1C 6.3 % 4.8-5. 6 above high normal Predi abete s: 5.7 - 6.4 Diabe reginaldo: >6.4 Glyce karly contr ol for adult s with diabe reginaldo: <7.0 Not Available [facility] ([facility]) [address] [place], [address], 04/05/2025 04:07:08 04/01/20 25 04/02/2025 COMPL EMENT C4, SERUM complement C4, serum 29 mg/dL 12-38 Not Available [facility] [address] [facility], [place], [address], 04/05/2025 04:07:09 04/01/20 25 04/02/2025 COMPL EMENT C3, SERUM complement C3, serum 129 mg/dL 82-167 Not Available [facility]) [address] [facility], [place], [address], 04/05/2025 04:07:09 04/01/20 25 04/03/2025 HIV AB/P2 4 AG WITH REFLE X HIV Ab/P24 Ag screen Non Reacti ve non reacti ve HIV-1 /HIV- 2 antib odies and HIV-1 p24 antig en were NOT detec julio césar. There is no labor atory evide nce of HIV infec tion. HIV Negat eulalia Not Available [facility] ([facility]) [address] [facility], [place], [address], 04/05/2025 04:07:10 04/01/20 25 04/02/2025 URINE CULTU RE, ROUTI NE urine culture, routine Final report Not Available [facility] ([facility]) [address] [facility], [place], [address], 04/05/2025 04:07:10 04/01/20 25 04/02/2025 URINE CULTU RE, ROUTI NE result 1 No growth Not Available [facility] ([facility]) [address] [facility], [place], [address], 04/05/2025 04:07:10 04/01/20 25 04/01/2025 urina lysis , dipst ick Leukocytes Trace Not Available [facility] [address] [facility], [place], [address], 04/01/2025 15:11:11 04/01/20 25 04/01/2025 urina lysis , dipst ick Nitrite negati ve Not Available [facility] [address] [place] [address], [place], [address], 04/01/2025 15:11:11 04/01/20 25 04/01/2025 urina lysis , dipst ick Urobilinogen 4 Not Available [address], [place], [address], 04/01/2025 15:11:11 04/01/20 25 04/01/2025 urina lysis , dipst ick Protein 30 Not Available [address], [place], [address], 04/01/2025 15:11:11 04/01/20 25 04/01/2025 urina lysis , dipst ick pH 7.0 Not Available [address], [place], [address], 04/01/2025 15:11:11 04/01/20 25 04/01/2025 urina lysis , dipst ick Blood Modera te Not Available [address], [place], [address], 04/01/2025 15:11:11 04/01/20 25 04/01/2025 urina lysis , dipst ick Specific Gilbert 1.015 Not Available [address], [place], [address], 04/01/2025 15:11:11 04/01/20 25 04/01/2025 urina lysis , dipst ick Ketone Negati ve Not Available [address], [address], 04/01/2025 15:11:11 04/01/20 25 04/01/2025 urina lysis , dipst ick Bilirubin Negati ve Not Available [address], [place], [address], 04/01/2025 15:11:11 04/01/20 25 04/01/2025 urina lysis , dipst ick Glucose Negati ve Not Available [address], [address], 04/01/2025 15:11:11 04/01/20 25 04/01/2025 urina lysis , dipst ick Appearance Clear Not Available [address], [address], 04/01/2025 15:11:11 04/01/20 25 04/01/2025 urina lysis , dipst ick Color Yalobusha Not Available [address], [address], 04/01/2025 15:11:11 Result Notes None recorded. Problems Name Problem SNOMED Code Status Onset Date Resolution Date Notes Provider Name and Address Organization Details Recorded Time Streptococcal sore throat 96238198 Active 2024 SHILO Ortiz [address] [place] [address], [address], [employer] 5 10:23:54 Adult attention deficit hyperactivity disorder 996683668 Active 2024 SHILO Ortiz [address] [place] [address], [address], [place] [employer] 5 16:17:03 Generalized anxiety disorder 59137157 Active 2024 SHILO Ortiz [address] [place] [address], [address], [employer] 5 16:17:09 Depressive disorder 31731526 Active 2024 SHILO Ortiz [address] [place] [address], [address] 8, [employer] 5 16:17:06 Fibromyalgia 230977548 Active 2024 TaosSHILO Andrade [address] [place] [address], [address] 8, [employer] 5 16:17:07 Labyrinthitis 92261071 Active 2024 Princess SHILO Rubi [address] [place] [address], [address], [employer] 5 16:17:13 Dark yellow urine 221542600 Active 2024 TaosSHILO Andrade [address] [place] [address], [address], [employer] 5 15:08:17 Right flank pain 892641237 Active 2024 SHILO Ortiz [address] [place] [address], [address], [employer] 5 15:33:24 Microscopic hematuria 613548988 Active 2024 SHILO Ortiz [address] [place] [address], [address], [employer] 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 5 08:34:00 Atrial fibrillation 62289189 Active 2024 SHILO Ortiz [address] [place] [address], [address] 8, [employer] 5 08:34:42 Dyspnea on exertion 27198655 Active 2024 SHILO Ortiz [address] [place] [address], [address] 8, [employer] 5 08:34:52 Problem Notes None recorded. Procedures Surgical History Date Name Laterality Status Provider Name and Address Organization Details Recorded Time Colposcopy completed [employer] 12/21/2024 10:05:32 Other completed [place] [facility] [employer] 12/21/2024 10:05:32 Imaging Results None recorded. Procedure Notes None recorded. Medical Equipment None Reported. Allergies Allergen ID Allergen Name Allergen Category Reaction Reaction Severity Criticality Documentation Date Start Date Code Code System Note Provider Name and Address Organization Details Recorded Time 90358 codeine medicatio n Not available Not available Not available 12/21/2024 2670 RxNorm TRAN [facility] [employer] 10:11:54 Medications Name Sig Start Date Stop [...] Available Not Available Vitals Date Recorded Body weight Body mass index (BMI) Body height Body temperature Heart rate Oxygen saturation Oxygen saturation in Arterial blood by Pulse oximetry Systolic And Diastolic Provider Name and Address Organization Details Last Updated DateTime 5 05674.6 1 g 29.5 kg/m2 167.64 cm 98.8 [degF] 78 /min 95 % 95 % 112/76 mm[Hg] [place] [employer] 5 10:18:09 Date Recorded Body height Oxygen saturation Oxygen saturation in Arterial blood by Pulse oximetry Heart rate Body temperature Body mass index (BMI) Body weight Systolic And Diastolic Provider Name and Address Organization Details Last Updated DateTime 5 167.64 cm 96 % 96 % 92 /min 98.2 [degF] 28.7 kg/m2 96140.4 4 g 106/74 mm[Hg] [employer] 5 15:53:01 Date Recorded Body height Body mass index (BMI) Body weight Oxygen saturation Oxygen saturation in Arterial blood by Pulse oximetry Heart rate Body temperature Systolic And Diastolic Provider Name and Address Organization Details Last Updated DateTime 5 167.64 cm 28.8 kg/m2 46502.6 g 97 % 97 % 116 /min 99.6 [degF] 102/66 mm[Hg] [employer] 5 14:41:09 Date Recorded Body height Body mass index (BMI) Body weight Body temperature Heart rate Oxygen saturation Oxygen saturation in Arterial blood by Pulse oximetry Systolic And Diastolic Systolic And Diastolic Provider Name and Address Organization Details Last Updated DateTime 5 167.64 cm 29 kg/m2 18782.4 7 g 98.2 [degF] 114 /min 95 % 95 % 80/60 mm[Hg] 80/60 mm[Hg] [employer] 5 08:07:07 Date Recorded Body height Body mass index (BMI) Body weight Heart rate Oxygen saturation Oxygen saturation in Arterial blood by Pulse oximetry Body temperature Systolic And Diastolic Systolic And Diastolic Provider Name and Address Organization Details Last Updated DateTime 167.64 cm 28.1 kg/m2 70069.7 9 g 108 /min 95 % 95 % 97.9 [degF] 92/64 mm[Hg] 92/68 mm[Hg] Michelle Royal [employer]. 08:04:28 Social History Question Answer Notes LastModified by Organizat ion Details LastModified Time Tobacco Smoking Status Never Smoker [place] [email or web address] [employer]. 12/21/2024 10:05:26 Do You Have An Advance Directive? No [email or web address] Information not available 12/21/2024 Is Your Home Air Conditioned? Yes Information not available 12/21/2024 How Many Years Have You Consumed Alcohol? 20 [email or web address] Information not available 12/21/2024 Do You Wear A Helmet When Biking? No [email or web address] Information not available 12/21/2024 Are You Blind Or Do You Have Difficulty Seeing? No [email or web address] Information not available 12/21/2024 What Is Your Level Of Caffeine Consumption? Occasional [email or web address] Information not available 12/21/2024 What Type Of Pressure Tank Operator Do You Use? None Information not available 12/21/2024 Have You Been To An Area Known To Be High Risk For COVID-19? No Information not available 01/10/2025 Are You Deaf Or Do You Have Serious Difficulty Hearing? No [email or web address] Information not available 12/21/2024 What Type Of Diet Are You Following? REGULAR [email or web address] Information not available 12/21/2024 How Many Days Of Moderate To Strenuous Exercise, Like A Brisk Walk, Did You Do In The Last 7 Days? 4 [email or web address] Information not available 12/21/2024 Have There Been Any Changes To Your Family Or Social Situation? Yes [email or web address] Information no t available 12/21/2024 Are There Any Guns Present In Your Home? No [email or web address] Information not available 12/21/2024 Which Of Your Hands Is Dominant? Left [email or web address] Information not available 12/21/2024 What Is Your Home Situation? Mother [email or web address] Information not available 12/21/2024 Do You Have A Medical Power Of Catalyst Recovery Operator? No [email or web address] Information not available 12/21/2024 What Was The Date Of Your Most Recent Tobacco Screening? 04/07/2025 Information not available 04/07/2025 Do You Have Any Pets? Yes [email or web address] Information not available 12/21/2024 Do You Use Protection During Sex? No [email or web address] Information not available 12/21/2024 What Is Your Relationship Status? [email or web address] Information not available 12/21/2024 Have You Repeated Any Grades? No [email or web address] Information not available 12/21/2024 Do You Use Your Seat Belt Or Car Seat Routinely? Yes [email or web address] Information not available 12/21/2024 Are You Sexually Active? Yes [email or web address] Information not available 12/21/2024 Do You Have Any Siblings? Yes, Information not available 12/21/2024 Do You Have Smoke And Carbon Monoxide Detectors In Your Home? Yes Information not available 12/21/2024 Are You Passively Exposed To Smoke? No [email or web address] Information no t available 12/21/2024 Are There Any Smokers In Your House? No [email or web address] Information not available 12/21/2024 Do You Use Sunscreen Routinely? No Information not available 12/21/2024 Has Tobacco Cessation Counseling Been Provided? No Information not available 01/10/2025 Have You Recently Traveled Abroad? No Information not available 01/10/2025 Do You Have Difficulty Walking Or Climbing Stairs? No [email or web address] Information not available 12/21/2024 Are You Currently In School? No Information not available 01/10/2025 Do You Have Any Dietary Restrictions? No Information not available 01/10/2025 Sex: Unknown Functional Status Question Answer Note LastModified by Organizat ion Details LastModified Time Do you use any illicit or recreational drugs? No Information not available 12/21/2024 Do you or have you ever used any other forms of tobacco or nicotine? No Information not available 01/10/2025 What is your level of alcohol consumption? Occasional [email or web address] Information not available 12/21/2024 Are you currently employed? No [email or web address] Information not available 12/21/2024 Do you have transportation difficulties? No Information not available 01/10/2025 Are you able to walk? YESWOREST [email or web address] Information not available 12/21/2024 Do you have difficulty doing errands alone? No [email or web address] Information not available 12/21/2024 Are you able to care for yourself? Yes [email or web address] Information n ot available 12/21/2024 Do you have difficulty dressing or bathing? No [email or web address] Information not available 12/21/2024 What is your exercise level? Moderate [email or web address] Information not available 12/21/2024 Mental Status Question Answer Note LastModified by Organization D etails LastModified Time Do you have difficulty concentrating, remembering or making decisions? Yes [email or web address] Information no t available 12/21/2024 Are you or have you been involved with bullying? Yes Information not available 12/21/2024 Family History Relationship Description Onset Age of this Age Resolved Age Notes LastModified by Organization Details LastModified Time Father Hypercholest erolemia [email or web address] Not available 2024 10:05:04 Father Malignant tumor of colon [email or web address] Not available 2024 10:05:04 Father Arthritis [email or web address] Not availab le 12/21/2024 10:05:04 Paternal Grandmother Malignant tumor of breast [email or web address] Not available 2024 10:05:04 Mother Hypercholest erolemia [email or web address] Not available 2024 10:05:04 Mother Anxiety disorder Not available 2024 10:05:04 Mother Depressive disorder [email or web address] Not available 2024 10:05:04 Mother Arthritis [email or web address] Not availab le 12/21/2024 10:05:04 Mother Heart disease [email or web address] Not available 2024 10:05:04 Maternal Grandmother Anxiety disorder [email or web address] Not available 2024 10:05:04 Maternal Grandmother Arthritis [email or web address] Not available 10:05:04 Sister Anxiety disorder [email or web address] Not available 2024 10:05:04 Sister Depressive disorder Not available 2024 10:05:04 Maternal Grandfather Harmful pattern of use of alcohol thisagy39 Not available 2024 10:05:04 Paternal Grandfather Arthritis jepltke73 Not available 10:05:04 Medical History Condition Response Allergies (Food, seasonal, environmental ) Y Depression Y Anxiety Disorder Y Vision or Eye Problems Y Bladder or Kidney Problems Y Headaches Y Fibromyalgia Y GI Problems Y ADD/ADHD Y Gynecological History Statement/Question Response Date of LMP 04/01/2025 Menses Monthly Y HPV Vaccine N Date of Last Pap Smear Most Recent Mammogram Age at First Child 40 Obstetrics History GPAL:G 0 P 0 0 0 0 Past Encounters Encounter ID Performer Location Encounter Start Date Encounter Closed Date Diagnosis/Indication Diagnosis SNOMED-CT Code Diagnosis ICD10 Code Diagnosis Note [id number] SHILO Ortiz [address] [address] 12/21/2024 09:41:47 12/21/2024 11:41:30 Streptococcal sore throat 46912457 J02.0 Take antibiotic s as prescribed until goneReplac e toothbrush Counseling 642906157 Z71 .9 Adult atte ntion deficit hyperactivity disorder 021029713 F90.9 Generalize d anxiety disorder 05207272 F41.1 Depressive disorder 3548 9007 F32.A Fibromyalgia 431955152 M 79.7 [id number] SHILO Ortiz [address] [address] 01/10/2025 15:15:15 01/10/2025 16:17:10 Labyrinthitis 63948290 H83.03 Rest, fluids. RTC if not improving. 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 RTC 3 days to re evaluateRe viewed labs with patient Dyspnea on exertion 6084 5006 R06.09 Right flank pain 3416261 09 R10.9 [id number] SHILO Ortiz [facility] [address] [place] [address] 04/07/2025 07:49:58 04/07/2025 08:22:14 Post-streptococcal disorder 429986757 M35.9 ECHO and renal US 04/18; will f/u after that and repeat labs Dyspnea on exertion 6084 5006 R06.09 Health Concerns Section Related Observation LastModified by Organization Detai ls LastModified Time None Recorded Concern Status LastModified by Organization Details LastModified Time None Recorded Advance Directives Directive N: Payers Insurance Date Sequence Insurance Name Policy Number Policy Valenzuela Covered Member ID Valenzuela Member ID Guarantor Name 04/18/2025 1 [facility] (MEDICAID HMO) Alexandrea Pan [id number] Alexandrea Pan Notes Date Note Type Note Provider Name and Address Organization Details Recorded Time 12/21/2024 text/html Patient presents to establish care at [facility].History of ADHD, anxiety, depression, fibromyalgia.Would like a letter to keep her dogs as emotional support animals. Also notes sore throat. Daughter diagnosed with strep throat last week. SHILO Ortiz [address] [place], [address], [employer] 12/21/2024 15:56:46 01/10/2025 text/html Patient states that she gets very dizzy when she rolls over to get up in the morning or after a nap. Has happened a few times in the past. Happens after she has been sick. FEels off balance, unsteady, and even nauseous. Does not happen when going from sitting to standing. SHILO Ortiz [address] [place] [address], [address], [employer] 01/10/2025 17:44:42 04/01/2025 text/html Patient states that when she takes an NSAID, she starts sweating, urine turns dark orange.States she had IV fluids earlier this week for dehydration.States for the past 2-3 weeks she has not had a bowel movement but has also not been eating.Has been drinking water, electrolytes. States she is not urinating much. She is not eating but has not lost weight so thinks that she is retaining the fluid.Has right flank pain. Mild pain on the left. Has had low grade fever.Went to a different PCP earlier this week and was told that urine was inconclusive, that she was diabetic, but not started on any meds.After exerting herself, even as simple as taking a shower, she has to go lay down afterwards because she is so fatigued.She has to hold her head when she coughs because it hurts so bad.States that 4-5 weeks ago she had what she thinks was strep throat, but did not seek medical attention. Took a few leftover antibiotics that she had previously. SHILO Ortiz [address] [place], [address], [employer] 04/01/2025 15:35:13 04/04/2025 text/html Patient presents for followup and review labs. ASO and liver enzymes were elevated. Started Cefdinir on Friday. Feeling some better. Less pain. Still retaining fluid. No fever today. SHILO Ortiz [address] [place], [address], [employer] 04/04/2025 12:02:10 04/07/2025 text/html Patient presents for followup. States she is feeling better and swelling has gone down, but she is still easily fatigued and just worn out. She does have ECHO and renal US scheduled 04/18. SHILO Ortiz [address] [place], [address], [employer] 04/07/2025 12:21:10 OBGyn Episode No OBEpisode recorded.
--- OUTSIDE RECORDS SUMMARY | 2025-04-18 10:08 | XMS_ITS | Continuity of Care Document ---
Author Organization [employer] [facility] Address [address] [place] [address] Assessment No assessment recorded. Plan of Treatment Reminders Order Date Submit Date Provider Last Modified By Organization Details Last Modified Time Details Appointments FOLLOW UP 30 2024 08:00A Asa Rubi PA-C Not available Not available Not available Lab None recorded . Referral None recorded . Procedures None recorded . Surgeries None recorded . Imaging None recorded . Medication Orders None recorded . Patient TargetsNo targets recorded. Patient InstructionsNo instructions recorded. Reason for Referral None Reported. Problems Name Problem SNOMED Code Status Onset Date Resolution Date Notes Provider Name and Address Organization Details Recorded Time Streptococcal sore throat 47650967 Active 2024 SHILO Ortiz [address] [place] [address], [address], [employer] 5 10:23:54 Adult attention deficit hyperactivity disorder 237921174 Active 2024 SHILO Ortiz [address] [place] [address], [address], [employer] 5 16:17:03 Generalized anxiety disorder 03315350 Active 2024 SHILO Ortiz [address] [place] [address], [address], [employer] 5 16:17:09 Depressive disorder 32309788 Active 2024 SHILO Ortiz [address] [place] [address], [address], [employer] 5 16:17:06 Fibromyalgia 650883642 Active 2024 PrincessSHILO Andrade [address] [place] [address], [address], [employer] 5 16:17:07 Labyrinthitis 51219027 Active 2024 Princess SHILO Rubi [address] [place] [address], [address], [employer] 5 16:17:13 Dark yellow urine 294071567 Active 2024 SHILO Ortiz [address] [place] [address], [address], [employer] 5 15:08:17 Right flank pain 026739283 Active 2024 SHILO Ortiz [address] [place] [address], [address], [employer] 5 15:33:24 Microscopic hematuria 429352158 Active 2024 SHILO Ortiz [address] [place] [address], [address], [employer] 5 15:33:31 Post-streptoco ccal disorder 181073778 Active 2024 SHILO Ortiz [address] [place] [address], [address], [employer] 5 08:34:00 Atrial fibrillation 39015608 Active 2024 SHILO Ortiz [address] [place] [address], [address], [employer] 5 08:34:42 Dyspnea on exertion 93321695 Active 2024 SHILO Ortiz [address] [place] [address], [address], [employer] 5 08:34:52 Problem Notes None recorded. Procedures Surgical History Date Name Laterality Status Provider Name and Address Organization Details Recorded Time Colposcopy completed [place] [facility]. 12/21/2024 10:05:32 Other completed [place] [facility] [employer] 12/21/2024 10:05:32 Imaging Results None recorded. Procedure Notes None recorded. Medical Equipment None Reported. Allergies Allergen ID Allergen Name Allergen Category Reaction Reaction Severity Criticality Documentation Date Start Date Code Code System Note Provider Name and Address Organization Details Recorded Time 80973 codeine medicatio n Not available Not available Not available 12/21/2024 2670 RxNorm [place] [facility] 10:11:54 Medications Name Sig Start Date [...] Details Last Updated DateTime 5 167.64 cm 28.1 kg/m2 34823.7 9 g 108 /min 95 % 95 % 97.9 [degF] 92/64 mm[Hg] 92/68 mm[Hg] Michelle [facility] [employer]. 08:04:28 Social History Question Answer Notes LastModified by Organizat ion Details LastModified Time Tobacco Smoking Status Never Smoker [place] jacobs [employer] 12/21/2024 10:05:26 Do You Have An Advance Directive? No [email or web address] Information not available 12/21/2024 Is Your Home Air Conditioned? Yes [email or web address] Information not available 12/21/2024 How Many Years Have You Consumed Alcohol? 20 trakqsx52 Information not available 12/21/2024 Do You Wear A Helmet When Biking? No Information not available 12/21/2024 Are You Blind Or Do You Have Difficulty Seeing? No badtqsl47 Information not available 12/21/2024 What Is Your Level Of Caffeine Consumption? Occasional [email or web address] Information not available 12/21/2024 What Type Of Ic Designer Gate Arrays Do You Use? None [email or web address] Information not available 12/21/2024 Have You Been To An Area Known To Be High Risk For COVID-19? No Information not available 01/10/2025 Are You Deaf Or Do You Have Serious Difficulty Hearing? No [email or web address] Information not available 12/21/2024 What Type Of Diet Are You Following? REGULAR [email or web address] Information not available 12/21/2024 How Many Days Of Moderate To Strenuous Exercise, Like A Brisk Walk, Did You Do In The Last 7 Days? 4 ovpxpnm61 Information not available 12/21/2024 Have There Been Any Changes To Your Family Or Social Situation? Yes [email or web address] Information no t available 12/21/2024 Are There Any Guns Present In Your Home? No [email or web address] Information not available 12/21/2024 Which Of Your Hands Is Dominant? Left Information not available 12/21/2024 What Is Your Home Situation? Mother [email or web address] Information not available 12/21/2024 Do You Have A Medical Power Of Commercial Loan Collection Officer? No [email or web address] Information not available 12/21/2024 What Was The Date Of Your Most Recent Tobacco Screening? 04/07/2025 Information not available 04/07/2025 Do You Have Any Pets? Yes [email or web address] Information not available 12/21/2024 Do You Use Protection During Sex? No [email or web address] Information not available 12/21/2024 What Is Your Relationship Status? [email or web address] Information not available 12/21/2024 Have You Repeated Any Grades? No [email or web address] Information not available 12/21/2024 Do You Use Your Seat Belt Or Car Seat Routinely? Yes [email or web address] Information not available 12/21/2024 Are You Sexually Active? Yes [email or web address] Information not available 12/21/2024 Do You Have Any Siblings? Yes, [email or web address] Information not available 12/21/2024 Do You Have Smoke And Carbon Monoxide Detectors In Your Home? Yes eepaqtj60 Information not available 12/21/2024 Are You Passively Exposed To Smoke? No [email or web address] Information no t available 12/21/2024 Are There Any Smokers In Your House? No eierplo22 Information not available 12/21/2024 Do You Use Sunscreen Routinely? No hogenzj32 Information not available 12/21/2024 Has Tobacco Cessation Counseling Been Provided? No Information not available 01/10/2025 Have You Recently Traveled Abroad? No Information not available 01/10/2025 Do You Have Difficulty Walking Or Climbing Stairs? No [email or web address] Information not available 12/21/2024 Are You Currently [...] is your level of alcohol consumption? Occasional [email or web address] Information not available 12/21/2024 Are you currently employed? No [email or web address] Information not available 12/21/2024 Do you have transportation difficulties? No Information not available 01/10/2025 Are you able to walk? YESWOREST wrihapx75 Information not available 12/21/2024 Do you have difficulty doing errands alone? No [email or web address] Information not available 12/21/2024 Are you able to care for yourself? Yes [email or web address] Information n ot available 12/21/2024 Do you have difficulty dressing or bathing? No Information not available 12/21/2024 What is your exercise level? Moderate ecfrgyn04 Information not available 12/21/2024 Mental Status Question Answer Note LastModified by Organization D etails LastModified Time Do you have difficulty concentrating, remembering or making decisions? Yes [email or web address] Information no t available 12/21/2024 Are you or have you been involved with bullying? Yes [email or web address] Information not available 12/21/2024 Family History Relationship Description Onset Age of this Age Resolved Age Notes LastModified by Organization Details LastModified Time Father Hypercholest erolemia [email or web address] Not available 2024 10:05:04 Father Malignant tumor of colon ybvxjqu37 Not available 2024 10:05:04 Father Arthritis [email or web address] Not availab le 12/21/2024 10:05:04 Paternal Grandmother Malignant tumor of breast hkhwned96 Not available 2024 10:05:04 Mother Hypercholest erolemia sztuxlm51 Not available 2024 10:05:04 Mother Anxiety disorder [email or web address] Not available 2024 10:05:04 Mother Depressive disorder wxkjyph26 Not available 2024 10:05:04 Mother Arthritis uwooifh62 Not availab le 12/21/2024 10:05:04 Mother Heart disease nvkcmlo79 Not available 2024 10:05:04 Maternal Grandmother Anxiety disorder rfmplyy41 Not available 2024 10:05:04 Maternal Grandmother Arthritis kgumjev08 Not available 10:05:04 Sister Anxiety disorder fyblfvx89 Not available 2024 10:05:04 Sister Depressive disorder sharszb46 Not available 2024 10:05:04 Maternal Grandfather Harmful pattern of use of alcohol tniowwk65 Not available 2024 10:05:04 Paternal Grandfather Arthritis ohfyjtu34 Not available 10:05:04 Medical History Condition Response Depression Y Anxiety Disorder Y Vision or Eye Problems Y Headaches Y Fibromyalgia Y Allergies (Food, seasonal, environmental ) Y Bladder or Kidney Problems Y GI Problems Y ADD/ADHD Y Gynecological History Statement/Question Response Date of LMP 04/01/2025 Menses Monthly Y HPV Vaccine N Date of Last Pap Smear Most Recent Mammogram Age at First Child 40 Obstetrics History GPAL:G 0 P 0 0 0 0 Past Encounters Encounter ID Performer Location Encounter Start Date Encounter Closed Date Diagnosis/Indication Diagnosis SNOMED-CT Code Diagnosis ICD10 Code Diagnosis Note [id number] SHILO Ortiz [address] [address] 04/01/2025 14:32:59 04/01/2025 15:29:45 Dark yellow urine 122140642 R39.89 HIV screening 784307512 Z11.4 Right flank pain 2774902 09 R10.9 Microscopic hematuria 19 4103815 R31.29 [id number] SHILO Ortiz [facility] [address] [place] [address] 04/04/2025 07:55:54 04/04/2025 08:25:26 Post-streptococcal disorder 771029239 M35.9 RTC 3 days to re evaluateRe viewed labs with patient Dyspnea on exertion 6084 5006 R06.09 Right flank pain 9590494 09 R10.9 [id number] SHILO Ortiz [facility] [address] [place] [address] 04/07/2025 07:49:58 04/07/2025 08:22:14 Post-streptococcal disorder 997141380 M35.9 ECHO and renal US 04/18; will f/u after that and repeat labs Dyspnea on exertion 6084 5006 R06.09 Health Concerns Section Related Observation LastModified by Organization Detai ls LastModified Time None Recorded Concern Status LastModified by Organization Details LastModified Time None Recorded Payers Encounter Date Sequence Insurance Name Policy Number Policy Valenzuela Covered Member ID Valenzuela Member ID Guarantor Name 04/07/2025 1 [facility] (MEDICAID HMO) Alexandrea Pan [id number] Alexandrea Pan Notes Date Note Type Note Provider Name and Address Organization Details Recorded Time 04/07/2025 text/html Patient presents for followup. States she is feeling better and swelling has gone down, but she is still easily fatigued and just worn out. She does have ECHO and renal US scheduled 04/18. SHILO Ortiz [address] [place] [address], [address], [facility] [employer] 04/07/2025 12:21:10 OBGyn Episode No OBEpisode recorded.
--- OUTSIDE RECORDS SUMMARY | 2025-04-18 10:08 | XMS_ITS | Continuity of Care Document ---
Author Organization [place] [employer] [facility] Address [address] [place] [address] Assessment No assessment recorded. Plan of Treatment Reminders Order Date Submit Date Provider Last Modified By Organization Details Last Modified Time Details Appointments FOLLOW UP 30 2024 08:00A Asa Rubi PA-C Not available Not available Not available Lab CBC w/ auto diff 2024 025 [facility], [address] [place], [address], 04/05/2025 04:07:08 CMP, serum or plasma 2024 025 [facility], [address] [place], [address], 04/05/2025 04:07:08 streptoco ccal DNAse B + ASO Ab panel, serum 2024 025 [facility]), [address] [place], [address], 04/05/2025 04:07:07 C3 (compleme nt), serum or plasma 2024 025 [facility], [address] [place], [address], 04/05/2025 04:07:09 C4 (compleme nt), serum or plasma 2024 025 [facility] [address] [place], [address], 04/05/2025 04:07:09 urinalysi s, dipstick 2024 025 [email or web address] [facility], [address] [facility], [place], [address], 04/01/2025 15:22:13 culture, urine 2024 025 [facility]), [address] [place], [address], 04/05/2025 04:07:10 HbA1c (hemoglob in A1c), blood 2024 025 [facility] [address] [place], [address], 04/05/2025 04:07:08 HIV 1 + 2, meaningfu l use set 2024 025 [facility] [address] [place], [address], 04/05/2025 04:07:10 Referral None recorded. Procedures None recorded. Surgeries None recorded. Imaging None recorded. Medication Orders cefdinir 300 mg capsule 2024 025 [email or web address] [facility], [address] [place], [address], 04/01/2025 15:32:46 Patient TargetsNo targets recorded. Patient Instructions Encounter Date Encounter Id Patient Instructions Last Modified By Organization Details Last Modified Time 04/01/2025 [id number] blood in the urine: care instructions Not available 04/01/2025 15:35:11 HIV testing: car e instructions [email or web address] Not available 04/01/2025 15:22:13 Reviewed recent labs Concern for PSGN Will check additional labs Hydrate over week, take Cefdinir as prescribed RTC Friday morning to recheck - to ER if worse over weekend [email or web address] Not available 04/01/2025 15:34:11 Reason for Referral None Reported. Results Created Date Observation Date Name Description Value Unit Range Abnormal Flag Note LastModifiedBy Organization Detail LastModifiedTime 04/01/2004/01/2025 urina lysis , dipst ick Leukocytes Trace Not Available [address], [place], [address], 04/01/2025 15:11:11 04/01/20 25 04/01/2025 urina lysis , dipst ick Nitrite negati ve Not Available [address], [address], 04/01/2025 15:11:11 04/01/20 25 04/01/2025 urina lysis , dipst ick Urobilinogen 4 Not Available [address], [address], 04/01/2025 15:11:11 04/01/20 25 04/01/2025 urina lysis , dipst ick Protein 30 Not Available [address], [address], 04/01/2025 15:11:11 04/01/20 25 04/01/2025 urina lysis , dipst ick pH 7.0 Not Available [address], [address], 04/01/2025 15:11:11 04/01/20 25 04/01/2025 urina lysis , dipst ick Blood Modera te Not Available [address], [address], 04/01/2025 15:11:11 04/01/20 25 04/01/2025 urina lysis , dipst ick Specific [place] 1.015 Not Available [address], [address], 04/01/2025 15:11:11 04/01/20 25 04/01/2025 urina lysis , dipst ick Ketone Negati ve Not Available [address], [address], 04/01/2025 15:11:11 04/01/20 25 04/01/2025 urina lysis , dipst ick Bilirubin Negati ve Not Available [address], [address], 04/01/2025 15:11:11 04/01/20 25 04/01/2025 urina lysis , dipst ick Glucose Negati ve Not Available [address], [address], 04/01/2025 15:11:11 04/01/20 25 04/01/2025 urina lysis , dipst ick Appearance Clear Not Available [address], [address], 04/01/2025 15:11:11 04/01/20 25 04/01/2025 urina lysis , dipst ick Color [place] Not Available [address], [address], 04/01/2025 15:11:11 Result Notes None recorded. Problems Name Problem SNOMED Code Status Onset Date Resolution Date Notes Provider Name and Address Organization Details Recorded Time Streptococcal sore throat 66272092 Active 2024 SHILO Ortiz [address] [place] [address], [address], [facility] [employer] 10:23:54 Adult attention deficit hyperactivity disorder 846347320 Active 2024 SHILO Ortiz [address] [place] [address], [address], [employer] 5 16:17:03 Generalized anxiety disorder 43893939 Active 2024 SHILO Ortiz [address] [place] [address], [address], [place] [employer] 5 16:17:09 Depressive disorder 88450403 Active 2024 SHILO Ortiz [address] [place] [address], [address], [place] [employer] 5 16:17:06 Fibromyalgia 829059582 Active 2024 SHILO Ortiz [address] [place] [address], [address], [employer] 5 16:17:07 Labyrinthitis 05232462 Active 2024 SHILO Ortiz [address] [place] [address], [address], [employer] 5 16:17:13 Dark yellow urine 429398268 Active 2024 SHILO Ortiz [address] [place] [address], [address], [employer] 5 15:08:17 Right flank pain 285195358 Active 2024 HSILO Ortiz [address] [place] [address], [address], [employer] 5 15:33:24 Microscopic hematuria 943221283 Active 2024 SHILO Ortiz [address] [place] [address], [address], [employer] 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 5 08:34:00 Atrial fibrillation 71796243 Active 2024 SHILO Ortiz [address] [place], [address], [employer] 5 08:34:42 Dyspnea on exertion 93564052 Active 2024 SHILO Ortiz [address] [place], [address], [employer] 5 08:34:52 Problem Notes None recorded. Procedures Surgical History Date Name Laterality Status Provider Name and Address Organization Details Recorded Time Colposcopy completed [employer] [employer] 12/21/2024 10:05:32 Other completed [employer] 12/21/2024 10:05:32 Imaging Results None recorded. Procedure Notes None recorded. Medical Equipment None Reported. Allergies Allergen ID Allergen Name Allergen Category Reaction Reaction Severity Criticality Documentation Date Start Date Code Code System Note Provider Name and Address Organization Details Recorded Time 84408 codeine medicatio n Not available Not available Not available 12/21/2024 2670 [employer] [place] [facility] [employer] 5 10:11:54 Medications Name Sig Start [...] Updated DateTime 5 167.64 cm 28.8 kg/m2 87993.6 g 97 % 97 % 116 /min 99.6 [degF] 102/66 mm[Hg] Michelle Royal [employer] 14:41:09 Social History Question Answer Notes LastModified by Organizat ion Details LastModified Time Tobacco Smoking Status Never Smoker [place] jacobs [employer] 12/21/2024 10:05:26 Do You Have An Advance Directive? No [email or web address] Information not available 12/21/2024 Is Your Home Air Conditioned? Yes [email or web address] Information not available 12/21/2024 How Many Years Have You Consumed Alcohol? 20 [email or web address] Information not available 12/21/2024 Do You Wear A Helmet When Biking? No Information not available 12/21/2024 Are You Blind Or Do You Have Difficulty Seeing? No Information not available 12/21/2024 What Is Your Level Of Caffeine Consumption? Occasional [email or web address] Information not available 12/21/2024 What Type Of Physician Do You Use? None [email or web address] Information not available 12/21/2024 Have You Been To An Area Known To Be High Risk For COVID-19? No Information not available 01/10/2025 Are You Deaf Or Do You Have Serious Difficulty Hearing? No [email or web address] Information not available 12/21/2024 What Type Of Diet Are You Following? REGULAR [email or web address] Information not available 12/21/2024 How Many Days Of Moderate To Strenuous Exercise, Like A Brisk Walk, Did You Do In The Last 7 Days? 4 [email or web address] Information not available 12/21/2024 Have There Been Any Changes To Your Family Or Social Situation? Yes [email or web address] Information no t available 12/21/2024 Are There Any Guns Present In Your Home? No [email or web address] Information not available 12/21/2024 Which Of Your Hands Is Dominant? Left [email or web address] Information not available 12/21/2024 What Is Your Home Situation? Mother Information not available 12/21/2024 Do You Have A Medical Power Of Chiller Operator? No [email or web address] Information not available 12/21/2024 What Was The Date Of Your Most Recent Tobacco Screening? 04/07/2025 Information not available 04/07/2025 Do You Have Any Pets? Yes [email or web address] Information not available 12/21/2024 Do You Use Protection During Sex? No [email or web address] Information not available 12/21/2024 What Is Your Relationship Status? [email or web address] Information not available 12/21/2024 Have You Repeated Any Grades? No [email or web address] Information not available 12/21/2024 Do You Use Your Seat Belt Or Car Seat Routinely? Yes [email or web address] Information not available 12/21/2024 Are You Sexually Active? Yes [email or web address] Information not available 12/21/2024 Do You Have Any Siblings? Yes, [email or web address] Information not available 12/21/2024 Do You Have Smoke And Carbon Monoxide Detectors In Your Home? Yes [email or web address] Information not available 12/21/2024 Are You Passively Exposed To Smoke? No [email or web address] Information no t available 12/21/2024 Are There Any Smokers In Your House? No Information not available 12/21/2024 Do You Use Sunscreen Routinely? No [email or web address] Information not available 12/21/2024 Has Tobacco Cessation Counseling Been Provided? No Information not available 01/10/2025 Have You Recently Traveled Abroad? No Information not available 01/10/2025 Do You Have Difficulty Walking Or Climbing Stairs? No Information not available 12/21/2024 Are You Currently In School? No Information not available 01/10/2025 Do You Have Any Dietary Restrictions? No Information not available 01/10/2025 Sex: Unknown Functional Status Question Answer Note LastModified by Organizat ion Details LastModified Time Do you use any illicit or recreational drugs? No [email or web address] Information not available 12/21/2024 Do you or have you ever used any other forms of tobacco or nicotine? No Information not available 01/10/2025 What is your level of alcohol consumption? Occasional [email or web address] Information not available 12/21/2024 Are you currently employed? No [email or web address] Information not available 12/21/2024 Do you have transportation difficulties? No Information not available 01/10/2025 Are you able to walk? YESWOREST [email or web address] Information not available 12/21/2024 Do you have difficulty doing errands alone? No [email or web address] Information not available 12/21/2024 Are you able to care for yourself? Yes Information n ot available 12/21/2024 Do you have difficulty dressing or bathing? No [email or web address] Information not available 12/21/2024 What is your exercise level? Moderate [email or web address] Information not available 12/21/2024 Mental Status Question Answer Note LastModified by Organization D etails LastModified Time Do you have difficulty concentrating, remembering or making decisions? Yes [email or web address] Information no t available 12/21/2024 Are you or have you been involved with bullying? Yes [email or web address] Information not available 12/21/2024 Family History Relationship Description Onset Age of this Age Resolved Age Notes LastModified by Organization Details LastModified Time Father Hypercholest erolemia [email or web address] Not available 2024 10:05:04 Father Malignant tumor of colon [email or web address] Not available 2024 10:05:04 Father Arthritis [email or web address] Not availab le 12/21/2024 10:05:04 Paternal Grandmother Malignant tumor of breast [email or web address] Not available 2024 10:05:04 Mother Hypercholest erolemia [email or web address] Not available 2024 10:05:04 Mother Anxiety disorder [email or web address] Not available 2024 10:05:04 Mother Depressive disorder [email or web address] Not available 2024 10:05:04 Mother Arthritis [email or web address] Not availab le 12/21/2024 10:05:04 Mother Heart disease [email or web address] Not available 2024 10:05:04 Maternal Grandmother Anxiety disorder [email or web address] Not available 2024 10:05:04 Maternal Grandmother Arthritis [email or web address] Not available 10:05:04 Sister Anxiety disorder [email or web address] Not available 2024 10:05:04 Sister Depressive disorder [email or web address] Not available 2024 10:05:04 Maternal Grandfather Harmful pattern of use of alcohol [email or web address] Not available 2024 10:05:04 Paternal Grandfather Arthritis Not available 10:05:04 Medical History Condition Response ADD/ADHD Y Anxiety Disorder Y Allergies (Food, seasonal, environmental ) Y Vision or Eye Problems Y Bladder or Kidney Problems Y Headaches Y Fibromyalgia Y Depression Y GI Problems Y Gynecological History Statement/Question Response Date of LMP 04/01/2025 Menses Monthly Y HPV Vaccine N Date of Last Pap Smear Most Recent Mammogram Age at First Child 40 Obstetrics History GPAL:G 0 P 0 0 0 0 Past Encounters Encounter ID Performer Location Encounter Start Date Encounter Closed Date Diagnosis/Indication Diagnosis SNOMED-CT Code Diagnosis ICD10 Code Diagnosis Note [id number] SHILO Ortiz [facility] [address] [place] [address] 04/01/2025 14:32:59 04/01/2025 15:29:45 Dark yellow urine 917933828 R39.89 HIV screening 934024961 Z11.4 Right flank pain 4933111 09 R10.9 Microscopic hematuria 19 4732588 R31.29 Health Concerns Section Related Observation LastModified by Organization Detai ls LastModified Time None Recorded Concern Status LastModified by Organization Details LastModified Time None Recorded Payers Encounter Date Sequence Insurance Name Policy Number Policy Valenzuela Covered Member ID Valenzuela Member ID Guarantor Name 04/01/2025 1 [employer] [facility] (MEDICAID HMO) Alexandrea Pan [id number] Alexandrea Pan Notes Date Note Type Note Provider Name and Address Organization Details Recorded Time 04/01/2025 text/html Patient states that when she [...] antibiotics that she had previously. SHILO Ortiz [address] [place] [address], [place], [address], [facility] [employer] 04/01/2025 15:35:13 OBGyn Episode No OBEpisode recorded.
--- NOTE | 2025-04-18 10:24 | CA_ITS ---
APPROVED REPORT EXAM: Comprehensive 2D, Doppler, and color-flow Echocardiogram Cushion Spring Assembler: Marya Corado RT(R) Ht: 5 ft 5 in Wt: 174lbs BSA: 1.86 BP: 112/68 mmHg Indications: SOB, fatigue 2D Dimensions LA Volume 14.30 mL LA Volume Index 7.65 mL/m2 (M/F) 16-34 EF AP4 73.60 % GL Strain -20.7 % M-Mode Dimensions RVDd 2.22 cm (0.9-2.6) LA Diam 2.67 cm (1.9-4.0) LVDd 3.69 cm (3.5-5.7) LVDs 2.82 cm (3.5-5.7) IVSd 0.66 cm (0.6-1.1) PWd 0.47 cm (0.6-1.1) EF (Teich) 47.90% FS 23.60% EDV (Teich) 57.80 mL ESV (Teich) 30.10 mL LV Diastology E Decel Time 237 (160-240 msec) E/A Ratio 0.8 Mitral Valve MV E Max [place]. 67.0 (40-130 cm/s) MV A Velocity 82.0 (40-130 cm/s) E/A Ratio 0.82 MV PHT 69.0 ms Tricuspid Valve TR P. Velocity 211.00 cm/s Left Ventricle The left ventricle is normal size. The left ventricular systolic function is normal. The left ventricular ejection fraction is within the normal range. There is normal left ventricular wall thickness. There is normal LV segmental wall motion. The left ventricular diastolic function is normal. LVEF is 55%. Right Ventricle The right ventricle is normal size. The right ventricular systolic function is normal. Atria The left atrium size is normal. The right atrium size is normal. There is no Doppler evidence of interatrial shunt. Aortic Valve Aortic valve opens well. There is no aortic valvular stenosis. No aortic regurgitation is present. Mitral Valve The mitral valve is normal in structure. No evidence of mitral valve stenosis. There is no mitral valve regurgitation noted. Tricuspid Valve Tricuspid valve is grossly normal in structure and function. Trace tricuspid regurgitation. There is insufficient TR jet to estimate RVSP. Pulmonic Valve The pulmonary valve is normal in structure. Trace colonic regurgitation. Great Vessels The aortic root is normal in size. IVC is normal in size and collapses >50% with inspiration. Pericardium There is no pericardial effusion. Other Information Study Quality: Adequate Conclusion Normal biventricular systolic function. No significant valvular stenosis or regurgitation. Electronically signed by : Beth Bender MD 04/21/2025 16:16:41
== END 2025-04-18 23:59 | disposition home or self-care (01) ==
LOC: RAD 10:04
PROVIDERS: PCP Physician Assistant; Visit Provider Physician Assistant
DX: R06.09 Other forms of dyspnea (principal); R06.02 Shortness of breath; R10.9 Unspecified abdominal pain; R53.83 Other fatigue
CPT/HCPCS: 76770; 93306

== ENCOUNTER 2025-05-17 09:04 | Outpatient (CLI) | payer OTHER, SELFPAY ==
--- OUTSIDE RECORDS SUMMARY | 2025-02-07 12:14 | XMS_ITS | Continuity of Care Document ---
Author Name [facility] Organization [facility] Care Team Providers Care Bookkeeper Assistant Name Role Phone [facility] Unavailable Unavailable Encounters [...] ADM Date DC Date Status Disposition Source [facility] Outpatient Encounter [id number] 02/07 [facility]
--- NOTE | 2025-05-17 09:07 | US_ITS ---
FINAL REPORT TECHNIQUE: Sonographic images of the right upper quadrant were obtained. CLINICAL HISTORY: ELEVATED LIVER ENZYMES COMPARISON: None FINDINGS: PANCREAS: Unremarkable. LIVER: Diffuse fatty infiltration of the liver is present.. No focal hepatic lesion. No intrahepatic biliary ductal dilatation. GALLBLADDER: No gallstones. No gallbladder wall thickening or pericholecystic fluid. COMMON DUCT: The common duct was not measured, however the bile ducts, both intra and extrahepatic, do not appear to be dilated. RIGHT KIDNEY: The right kidney measures 9.4 cm. There is no hydronephrosis, mass, or stone. FREE FLUID: None. IMPRESSION: Fatty infiltration of the liver. Reviewed, Interpreted and Dictated by Mimi Allen MD Transcribed by Yeimy San Authenticated and [facility]
--- OUTSIDE RECORDS SUMMARY | 2025-05-17 09:08 | XMS_ITS | Clinical Summary ---
Author Organization [employer] ([place], [place], [place], [place]) Address [address] [place] [address] Care Team Providers Care Wafer Polisher Name Role Phone Unavailable Primary Care Provider [...]
--- OUTSIDE RECORDS SUMMARY | 2025-05-17 09:08 | XMS_ITS | Encounter Summary ---
Author Organization [employer] ([place], [place], [place], [place]) Address [address] [place] [address] Care Team Providers Care Traffic Rate Analyst Name Role Phone Unavailable Primary Care Provider Unavailabl e Encounter Details Date Type Department Care Team (Late st Contact Info) Description 11/10/2020 Transcribed Document [facility] Family Medicine [address] [place] [address] ProviderFernanda MD [address], [place] [id number] Social History Tobacco Use Types Packs/Day Years Used Date Smoking Tobacco: Never Assessed Comments Unknown Sex and Gender Information Value Date Recorded Sex Assigned at Not on file Legal Sex Female 6:10 PM CDT Gender Identity Not on file Sexual Orientation Not on file documented as of this encounter Miscellaneous Notes * Cerner Conversion Note - Historical ProviderMD - 11/10/2020 3:53 PM COAL INSPECTOR ED Discharge Entered On: 11/10/2020 15:53 EST [...] 11/10/2020 15:53 EST Electronically signed by Fatuma Cox [place] Conversion Medical Secretary Receptionist Cerner at 01/20/2023 9:24 AM CDT documented in this encounter Plan of Treatment Not on file documented as of this encounter Visit Diagnoses Not on filedocumented in this encounter
--- OUTSIDE RECORDS SUMMARY | 2025-05-17 09:08 | XMS_ITS | Encounter Summary ---
Author Organization [employer] ([place], [place], [place], [place]) Address [address] [place] [address] Care Team Providers Care Fabric Worker Foreman Name Role Phone Unavailable Primary Care Provider Unavailabl e Encounter Details Date Type Department Care Team (Late st Contact Info) Description 11/10/2020 Transcribed Document [facility] [address] [place] [address] ProviderFernanda MD [address] [place] [address] Social History Tobacco Use Types [...] - Historical ProviderMD - 11/10/2020 2:52 PM POT ROOM SUPERVISOR Electronically signed by Interface, [facility] Conversion Forge Tender Cerner at 01/20/2023 9:05 AM CDT documented in this encounter Plan of Treatment Not on file documented as of this encounter Visit Diagnoses Not on filedocumented in this encounter
--- OUTSIDE RECORDS SUMMARY | 2025-05-17 09:08 | XMS_ITS | Encounter Summary ---
Author Organization [employer] ([place], [place], [place], [place]) Address [address] [place] [address] Care Team Providers Care Master Tax Advisor Name Role Phone Unavailable Primary Care Provider Unavailabl e Encounter Details Date Type Department Care Team (Late st Contact Info) Description 11/13/2020 Transcribed Document [facility] Family Medicine [address] [place] [address] ProviderFernanda MD [address] [place] [address] Social History Tobacco Use Types [...] - Historical ProviderMD - 11/13/2020 11:49 AM LIQUOR MAKER Urine Culture Collected: 11/10/2020 12:45 Esccol Complete Body site: Specimen Type: U CleanCatch 11/13/2020 09:28 11/13/2020 11:49 (KALYANI KNOWLES PA) Reviewed by Provider, No further action required Sensitive to Rx of cefuroxime documented in this encounter Plan of Treatment Not on file documented as of this encounter Visit Diagnoses Not on filedocumented in this encounter
--- OUTSIDE RECORDS SUMMARY | 2025-05-17 09:08 | XMS_ITS | Encounter Summary ---
Author Organization [employer] ([place], [place], [place], [place]) Address [address] [place] [address] Care Team Providers Care Technical Sales Manager Name Role Phone Unavailable Primary Care Provider Unavailabl e Encounter Details Date Type Department Care Team (Late st Contact Info) Description 11/10/2020 Transcribed Document [facility] [place] Family Medicine [facility] [place] [address] ProviderFernanda MD [address] [place] [address] Social History Tobacco Use Types [...] - Historical ProviderMD - 11/10/2020 12:29 PM PLATE GLASS GRINDER ED Triage Entered On: 11/10/2020 12:44 EST Performed On: 11/10/2020 12:42 EST by Lexi Snow Flex Team drilling supervisor Triage Across the Room Chief Complaint : pt having urinary problems, for last few days, urine discolored, lower abd pain with cramping, Triage Date/Time : 11/10/2020 12:42 EST Lexi Snow Flex Team Rn - 11/10/2020 12:42 EST DCP GENERIC CODE Tracking Acuity : 3 - Urgent Tracking Group : [facility] Lexi Snow Flex Team Rn - 11/10/2020 12:42 EST Mode of Arrival : Ambulatory Transported to ED by : Private vehicle To Room Via : Ambulate Accompanied By : Unaccompanied ED Vital Signs : Document Height & Weight : Document ED Allergies : Document ED Reason for Visit : Document Tetanus Immunization : Less than [address] Worker Needed : No Lexi Snow Flex Team [...] Problems(Active) 28 weeks gestation of (SNOMED CT :157659796 ) Name of Problem: 28 weeks gestation of ; Recorder: PAT SUTTON MD; Confirmation: Confirmed ; Classification: Medical ; Code: [id number] ; Contributor System: [employer] ; Last Updated: 05/22/2018 17:04 EDT ; Life Cycle Date: 05/22/2018 ; Life Cycle Status: Active ; Responsible Provider: PAT SUTTON MD; Vocabulary: SNOMED CT Cough (SNOMED CT :35744080 ) Name of Problem: Cough ; Recorder: PAT SUTTON MD; Confirmation: Confirmed ; Classification: Medical ; Code: [id number] ; Contributor System: [employer] ; Last Updated: 05/22/2018 17:05 EDT ; Life Cycle Date: 05/22/2018 ; Life Cycle Status: Active ; Responsible Provider: PAT SUTTON MD; Vocabulary: SNOMED CT Vaginal discharge in in third trimester (SNOMED CT :843363406 ) Name of Problem: Vaginal discharge in in third trimester ; Recorder: PAT SUTTON MD; Confirmation: Confirmed ; Classification: Medical ; Code: [id number] ; Contributor System: [employer] ; Last Updated: 05/22/2018 17:05 EDT ; Life Cycle Date: 05/22/2018 ; Life Cycle Status: Active ; Responsible Provider: PAT SUTTON MD; Vocabulary: SNOMED CT Diagnoses(Active) Abdominal pain Date: 11/10/2020 ; Diagnosis Type: Reason For Visit ; Confirmation: Complaint of ; Clinical Dx: Abdominal pain ; Classification: Medical ; Clinical Service: Non-Specified ; Code: PNED ; Probability: 0 ; Diagnosis Code: [id number] ED Height and Weight Height Source : Stated Height Entry Format : [place] Height, Feet : 5 ft(Converted to: 152 cm, 60 Inch) Height, Inches : 5 Inch(Converted to: 0 ft 5 Inch, 12.70 cm) Clinical Height : 165.1 cm Weight Source, ED : Critical estimated dosing weight Weight Entry Format : [place] Weight, Pounds : 195 lb Clinical Dosing Weight : 88.64 kg Body Surface Area (BSA) : 1.96 m2 Body Mass Index : 32.5 kg/m2 (HI) [place] Body Weight (IBW) : 56.59 kg Lexi [...] form. Electronically signed by Dheeraj Burris Conversion Accounts Receivable Associate Cerner at 01/20/2023 9:14 AM CDT documented in this encounter Plan of Treatment Not on file documented as of this encounter Visit Diagnoses Not on filedocumented in this encounter
--- OUTSIDE RECORDS SUMMARY | 2025-05-17 09:08 | XMS_ITS | Referral Summary ---
Author Organization [employer] ([place], [place], [place], [place]) Address [address] [place] [address] Care Team Providers Care Sales Executive Name Role Phone Unavailable Primary Care Provider [...]
--- OUTSIDE RECORDS SUMMARY | 2025-05-17 09:08 | XMS_ITS | Encounter Summary ---
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 Where: [address] [place] [address] OF [place]OLOGY [place], [place] [id number]- [facility] (1) Allergies codeine Immunizations This Visit No Immunizations Found Medications What How Much When Instructions Next Dose cefUROXIME (Ceftin 500 mg oral tablet) 1 Tablet(s) Oral Two Times A Day Duration: 7 Day(s) Pickup at [place] [address] phenazopyridine (Pyridium 200 mg oral tablet) 1 Tablet(s) Oral Two Times A Day Duration: 2 Day(s) Pickup at [place] [address] acetaminophen-hydrocodone (acetaminophen-HYDROcodone 325 mg-5 mg oral tablet) [...] Low Iron) Oral Every Day Pharmacy Information [facility] [place], [place] [id number] [phone] The home medications listed are only as [...] ) Urine Bilirubin Dipstick: Negative Urine Specific [place]: 1.022 -- Normal range between ( 1.005 [...] these instructions at home: Medicines ??? Take axep-yug-nckqpzm and prescription medicines only as told by [...] the blood stops without treatment. ??? Take qtro-qzk-odtbfdr and prescription medicines only as told by your health care provider. ??? Drink enough fluid to keep your urine clear or pale yellow. This information is not intended to replace advice given to you by your health care provider. Make sure you discuss any questions you have with your health care provider. Document Released: 09/22/2006 Document Revised: 02/16/2020 Document Reviewed: 10/25/2017 [employer] Patient Education ?? 2020 [employer]. Kidney Stones Kidney stones are solid, rock-like [...] these instructions at home: Medicines ??? Take ygdd-rqt-buepmch and prescription medicines only as told by [...] 09/22/2006 Document Revised: 02/08/2020 Document Reviewed: 02/08/2020 [employer] Patient Education ?? 2020 [employer]. Urinary Tract Infection, Adult A urinary tract [...] these instructions at home: Medicines ??? Take ltdt-nys-ypaujle and prescription medicines only as told by [...] 03/10/2009 Document Revised: 09/09/2019 Document Reviewed: 04/01/2019 [employer] Patient Education ?? 2020 [employer]. Emergency Awareness and Preventative Care STROKE is [...] Assistance with quitting is available by contacting 7-665-[facility]-NOW. This is a free resource providing counseling, [...] was given the opportunity to ask questions. Patient/Cyber Policy And Strategy Planner Name: Patient/Cyber Policy And Strategy Planner Signature: Relationship to Patient: Clinician/Hospital Cyber Policy And Strategy Planner Signature: Please Provide a Telephone Number Where You Can Be Reached: Is it Permissible To Leave a Message? Date: documented in this encounter Plan of Treatment Not on file documented as of this encounter Visit Diagnoses Not on filedocumented in this encounter
== END 2025-05-17 23:59 | disposition home or self-care (01) ==
LOC: RAD 09:05
PROVIDERS: PCP Physician Assistant; Visit Provider Physician Assistant
DX: K76.0 Fatty (change of) liver, not elsewhere classified (principal); R74.8 Abnormal levels of other serum enzymes
CPT/HCPCS: 76705